=== PATIENT | female | born 1995 | race Caucasian/White ===

== ENCOUNTER 2022-01-08 00:32 | Inpatient (IN) ==
[2022-01-08] MEDS ORDERED: OXYTOCIN 30 UNITS/500 ML BAG IV PRN ×2 (01:24→10:50)
[2022-01-08] MEDS ORDERED: LIDOCAINE 1% LOCAL 20 ML VIAL INFIL PRN (01:24)
--- NOTE | 2022-01-08 01:28 | History & Physical Report ---
Date of Service January 08, 2022 Assessment & Plan (1) Supervision of normal first : Plan: Spontaneous labor. Admit to L&D. EFM/toco. Labs. IV access. She is not yet sure whether she'll want an epidural. History of Present Illness Chief Complaint: ROM Primary Care Provider: NO PCP 26yo @ 38 03/31, ROM clear fluid at home just prior to midnight. Feeling ctx every few minutes. +FM. No vaginal bleeding. uncomplicated. Allergies Allergy/AdvReac Type Severity Reaction Status Date / Time amoxicillin Allergy hives Verified 01/01/22 16:34 azithromycin Allergy hives Verified 01/01/22 16:34 chocolate flavor Allergy hives Verified 01/01/22 16:34 doxycycline Allergy hives Verified 01/01/22 16:34 Home Medications Medication Instructions Recorded Confirmed Type cetirizine 10 mg tablet (Zyrtec) 10 mg PO DAILY 03/01/21 01/08/22 History prenat.vits,mara,lhx-ucus-zaoed 1 tab PO DAILY 06/05/21 01/08/22 History Patient History Medical History History of chicken pox Urticaria Surgical History S/P cholecystectomy S/P wisdom tooth extraction Family History Grandmother (Maternal) Breast cancer Denies family history of Ovarian cancer Colorectal cancer Social History Smoking Status: Never smoker Hx Alcohol Use: No Hx Substance Use: No Preferred Language: Citizen Of [place] Communication Ability: Effective Die Turner Required: No Beliefs That Will Affect Care: None marital status: marital status details: Pop Luna (28) [phone] Current Living Situation: Spouse Current Living Situation Comment: lives with spouse, dogs current occupational status: employed 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 Other Information That Helps Us Care for You: No Feels Safe at Home: Yes Safety Concerns: Feels Safe At This Time Review of Systems All systems reviewed & are unremarkable except as noted in HPI & below Physical Exam Physical Exam: FHT Cat 1 [place] Q 3-4 min SVE 5/90/+1, grossly ruptured clear fluid mid/soft, EFW 7-8 Constitutional: WD/WN, vitals as above Respiratory: normal respiratory effort, lungs clear to auscultation no respiratory distress Cardiovascular: Rate/Rhythm: regular rate and regular rhythm Gastrointestinal (Abdomen): Inspection/Auscultation: abdomen normal to inspection Percussion/Palpation: abdomen soft; abdomen nontender Gravid. No s/s chorio or abruption. Skin: no rashes, warm and dry Psychiatric: A+Ox3, euthymic affect Results & Data ([facility]) Vital Signs (Past 12 Hours) Vital Signs Temp Pulse Resp BP 01/08/22 00:54 86 116/70 01/08/22 00:49 36.6 C 18 Coding Level of Care Code None Diagnoses Supervision of normal first Z34.00
[2022-01-08 01:53] LABS: Hematocrit (blood only) 32.5 % (34.1-44.9); Hemoglobin 10.6 g/dl (12.0-16.0); Mean Corpuscular Hgb Conc 32.6 g/dL (32.0-36.0); Mean Corpuscular Volume 76.7 fL (80.0-100.0); Mean Platelet Volume 10.9 fL (9.4-12.3); Platelet Count 182 K/uL (130-400); RDW Coefficient of Variation 15.9 % (11.5-14.5); RDW Standard Deviation 43.3 fL (36.4-46.3); Red Blood Count 4.24 M/uL (3.93-5.22)
[2022-01-08] MEDS: LACTATED RINGER'S 1,000 ML IV PRN ×2 (03:12→06:59)
[2022-01-08] MEDS ORDERED: fentaNYL citrate 100 MCG/2 ML VIAL ONE (03:15)
[2022-01-08] MEDS ORDERED: LIDOCAINE 2%/EPINEPHRINE 1:200,000 20 ML SDV ONE (03:15)
[2022-01-08] MEDS ORDERED: BUPIVACAINE 0.25% 30 ML VIAL ONE (03:15)
[2022-01-08] MEDS ORDERED: ePHEDrine sulfate 50 MG/ML AMP ONE (03:15)
[2022-01-08] MEDS ORDERED: SODIUM CHLORIDE 0.9% INJ 10 ML VIAL ONE (03:15)
[2022-01-08] MEDS ORDERED: fentaNYL 2MCG/ML ROPIVACAINE 1.25MG/ML 100 ML BAG EPI ONE (03:16)
[2022-01-08] MEDS ORDERED: ePHEDrine sulfate 50 MG/ML AMP IV PRN (03:40)
[2022-01-08] MEDS ORDERED: diphenhydrAMINE 50 MG/ML VIAL IV PRN (03:40)
[2022-01-08] MEDS ORDERED: fentaNYL 2MCG/ML ROPIVACAINE 1.25MG/ML 100 ML BAG EPI PRN (03:40)
[2022-01-08] MEDS ORDERED: NALOXONE HCL 0.4 MG/1 ML VIAL/CARP IV PRN (03:40)
[2022-01-08] MEDS ORDERED: ONDANSETRON INJ 2 MG/ML 2 ML VIAL IV PRN (03:40)
[2022-01-08] MEDS ORDERED: NALOXONE HCL 1 MG in SODIUM CHLORIDE 0.9% 1000ML 1,000 ML IV PRN (03:40)
[2022-01-08] MEDS ORDERED: NALBUPHINE HCL INJ 10 MG/ML AMP IV PRN (03:40)
--- NOTE | 2022-01-08 03:40 | Anesthesiology Consultation ---
Date of Service January 08, 2022 Assessment & Plan ASA ASA2 Proposed Anesthesia Anesthesia Type: Labor Epidural Risk / Benefits Reviewed With: PT / POA / Parent / Guardian, Accepts Plan and Informed Consent Obtained History Height/Weight Height: 5 ft 5 in Weight: 93.894 kg Allergies Allergy/AdvReac Type Severity Reaction Status Date / Time amoxicillin Allergy hives Verified 01/01/22 16:34 azithromycin Allergy hives Verified 01/01/22 16:34 chocolate flavor Allergy hives Verified 01/01/22 16:34 doxycycline Allergy hives Verified 01/01/22 16:34 Medications Home Medications Medication Instructions Recorded Confirmed Last Taken cetirizine 10 mg tablet (Zyrtec) 10 mg PO DAILY 03/01/21 01/08/22 01/07/22 prenat.vits,mara,mwp-uygg-pisic 1 tab PO DAILY 06/05/21 01/08/22 01/07/22 Active Medications Generic Name Dose Route Start Last Admin Trade Name Freq PRN Reason Stop Dose Admin Lactated Ringer's 1,000 mls @ 125 mls/hr 01/08/22 01:24 01/08/22 03:12 Lr IV 01/10/22 01:23 999 mls/hr .Q8H PRN Administration L&D Protocol Protocol Past Medical History Medical History History of chicken pox Urticaria Exercise / Class Metabolic Activity II 4-5 Yardwork/Stairs/Walk up hill Past Family History Family History Grandmother (Maternal) Breast cancer Denies family history of Ovarian cancer Colorectal cancer Past Surgical History Surgical History S/P cholecystectomy S/P wisdom tooth extraction Past Anesthesia History No Hx of Anesthesia Complications and No Family Hx of Anesthesia Complications History of PONV No Hx of PONV and No Hx of Motion Sickness Social History Smoking Status: Never smoker Hx Alcohol Use: No Hx Substance Use: No Review of Systems denies fever/cough/ colds/ chest pain/ SOB/ KARO denies KARO Physical Exam Vital Signs Last Vital Signs Temp 36.6 C 01/08/22 02:15 Pulse 66 01/08/22 04:07 Resp 18 01/08/22 00:49 BP 91/52 L 01/08/22 04:07 Pulse Ox 100 01/08/22 04:06 ENMT Mouth: no TMJ abnormality and no dentition abnormality Thyromental Distance: > or= 3.5 Finger Breadths Mallampati Class: II Neck neck extension not limited Respiratory normal respiratory effort; no respiratory distress Auscultation: lungs clear to auscultation bilaterally Cardiovascular Rate/Rhythm: regular rate and regular rhythm Neurologic moves all extremities Psychiatric Orientation: alert and oriented x 3 Testing Laboratory Results 01/08/22 01:44
--- NOTE | 2022-01-08 07:00 | Labor Progress Brief Note ---
Date of Service January 08, 2022 Subjective Patient comfortable with epidural. FHT Cat 1 [place] Q 2 SVE 9.5/100/+1 per RN Continue labor. Not feeling urge to push yet. Assessment & Plan Admission and Anticipated Discharge Date Admission Date: January 08, 2022 Results & Data ([facility]) Vital Signs (Past 12 Hours) Vital Signs Temp Pulse Resp BP Pulse Ox 01/08/22 06:56 93 H 98 01/08/22 06:51 96 H 98 01/08/22 06:46 103 H 97 01/08/22 06:41 113 H 99 01/08/22 06:36 124 H 99 01/08/22 06:31 121 H 100 01/08/22 06:29 36.9 C 120 H 126/78 01/08/22 06:26 104 H 98 01/08/22 06:21 106 H 99 01/08/22 06:16 125 H 98 01/08/22 06:14 105 H 125/71 01/08/22 06:11 107 H 98 01/08/22 06:06 106 H 97 01/08/22 06:00 18 01/08/22 06:00 18 01/08/22 06:01 98 H 98 01/08/22 05:59 121 H 121/66 01/08/22 05:56 99 H 97 01/08/22 05:51 111 H 98 01/08/22 05:46 125 H 98 01/08/22 05:45 105 H 118/72 01/08/22 05:41 118 H 98 01/08/22 05:36 99 H 97 01/08/22 05:31 120 H 98 01/08/22 05:30 114 H 18 120/69 01/08/22 05:26 105 H 98 01/08/22 05:21 94 H 98 01/08/22 05:16 98 H 97 01/08/22 05:14 104 H 113/71 01/08/22 05:11 116 H 98 01/08/22 05:06 129 H 98 01/08/22 05:01 122 H 99 01/08/22 05:00 126 H 18 110/68 01/08/22 04:56 108 H 98 01/08/22 04:51 92 H 97 01/08/22 04:46 90 97 01/08/22 04:45 93 H 127/63 01/08/22 04:41 105 H 97 01/08/22 04:36 88 98 01/08/22 04:15 36.7 C 01/08/22 04:00 18 01/08/22 04:00 18 01/08/22 04:30 18 01/08/22 04:30 18 01/08/22 04:31 98 01/08/22 04:31 112 H 01/08/22 04:31 120 H 129/73 01/08/22 04:26 78 99 01/08/22 04:25 65 154/72 H 01/08/22 04:23 66 98/55 L 01/08/22 04:21 79 98 01/08/22 04:16 107 H 98 01/08/22 04:14 100 H 121/74 01/08/22 04:11 87 99 01/08/22 04:10 73 121/67 01/08/22 04:07 66 91/52 L 01/08/22 04:06 68 100 01/08/22 04:04 73 107/64 01/08/22 04:01 97 H 98 01/08/22 03:59 102 H 111/67 01/08/22 03:56 93 H 99 01/08/22 03:51 118 H 100 01/08/22 03:46 94 H 100 01/08/22 03:41 93 H 100 01/08/22 03:36 93 H 99 01/08/22 03:31 85 99 01/08/22 03:26 81 99 01/08/22 03:21 90 100 01/08/22 02:15 36.6 C 01/08/22 00:54 86 116/70 01/08/22 00:49 36.6 C 18 Coding Level of Care Code None
--- NOTE | 2022-01-08 09:20 | Labor Progress Brief Note ---
Date of Service January 08, 2022 Subjective comfortable appearing Assessment & Plan (1) Active labor at term: Plan begin 2nd stage soon. fhts categ 1. aware that i am taking over care. Admission and Anticipated Discharge Date Admission Date: January 08, 2022 Physical Exam Constitutional: WD/WN, vitals as above Genitourinary: Manual OB Exam: + cervical dilation 10 cm (per nurse) OB Exam Monitor Tracing: + external FHT monitor used, + external uterine monitor used (q3), + category I and + normal FHT variability Results & Data ([facility]) Vital Signs (Past 12 Hours) Vital Signs Temp Pulse Resp BP Pulse Ox 01/08/22 07:00 98.4 F 18 01/08/22 09:14 98 H 132/83 01/08/22 09:11 97 H 99 01/08/22 09:06 92 H 98 01/08/22 09:02 20 01/08/22 09:02 98.4 F 20 01/08/22 09:01 93 H 100 01/08/22 09:00 90 134/86 01/08/22 08:56 93 H 98 01/08/22 08:51 120 H 98 01/08/22 08:46 98 01/08/22 08:46 86 01/08/22 08:46 83 127/77 01/08/22 08:41 110 H 98 01/08/22 08:36 83 97 01/08/22 08:30 20 01/08/22 08:30 20 01/08/22 08:31 114 H 118/83 98 01/08/22 08:26 114 H 98 01/08/22 08:21 91 H 97 01/08/22 08:16 96 H 97 01/08/22 08:15 90 129/87 01/08/22 08:11 91 H 98 01/08/22 08:00 18 01/08/22 08:00 18 01/08/22 08:06 137 H 98 01/08/22 08:01 106 H 110/74 99 01/08/22 07:56 84 98 01/08/22 07:51 88 98 01/08/22 07:46 102 H 98 01/08/22 07:45 107 H 121/86 01/08/22 07:41 95 H 98 01/08/22 07:36 101 H 97 01/08/22 07:31 90 99 01/08/22 07:30 92 H 20 122/77 01/08/22 07:26 119 H 98 01/08/22 07:21 92 H 98 01/08/22 07:16 86 98 01/08/22 07:15 125 H 107/70 01/08/22 07:11 101 H 98 01/08/22 07:06 88 98 01/08/22 07:01 112 H 119/84 99 01/08/22 06:56 93 H 98 01/08/22 06:51 96 H 98 01/08/22 06:46 103 H 97 01/08/22 06:41 113 H 99 01/08/22 06:36 124 H 99 01/08/22 06:31 121 H 100 01/08/22 06:29 98.4 F 120 H 126/78 01/08/22 06:26 104 H 98 01/08/22 06:21 106 H 99 01/08/22 06:16 125 H 98 01/08/22 06:14 105 H 125/71 01/08/22 06:11 107 H 98 01/08/22 06:06 106 H 97 01/08/22 06:00 18 01/08/22 06:00 18 01/08/22 06:01 98 H 98 01/08/22 05:59 121 H 121/66 01/08/22 05:56 99 H 97 01/08/22 05:51 111 H 98 01/08/22 05:46 125 H 98 01/08/22 05:45 105 H 118/72 01/08/22 05:41 118 H 98 01/08/22 05:36 99 H 97 01/08/22 05:31 120 H 98 01/08/22 05:30 114 H 18 120/69 01/08/22 05:26 105 H 98 01/08/22 05:21 94 H 98 01/08/22 05:16 98 H 97 01/08/22 05:14 104 H 113/71 01/08/22 05:11 116 H 98 01/08/22 05:06 129 H 98 01/08/22 05:01 122 H 99 01/08/22 05:00 126 H 18 110/68 01/08/22 04:56 108 H 98 01/08/22 04:51 92 H 97 01/08/22 04:46 90 97 01/08/22 04:45 93 H 127/63 01/08/22 04:41 105 H 97 01/08/22 04:36 88 98 01/08/22 04:15 98.1 F 01/08/22 04:00 18 01/08/22 04:00 18 01/08/22 04:30 18 01/08/22 04:30 18 01/08/22 04:31 98 01/08/22 04:31 112 H 01/08/22 04:31 120 H 129/73 01/08/22 04:26 78 99 01/08/22 04:25 65 154/72 H 01/08/22 04:23 66 98/55 L 01/08/22 04:21 79 98 01/08/22 04:16 107 H 98 01/08/22 04:14 100 H 121/74 01/08/22 04:11 87 99 01/08/22 04:10 73 121/67 01/08/22 04:07 66 91/52 L 01/08/22 04:06 68 100 01/08/22 04:04 73 107/64 01/08/22 04:01 97 H 98 01/08/22 03:59 102 H 111/67 01/08/22 03:56 93 H 99 01/08/22 03:51 118 H 100 01/08/22 03:46 94 H 100 01/08/22 03:41 93 H 100 01/08/22 03:36 93 H 99 01/08/22 03:31 85 99 01/08/22 03:26 81 99 01/08/22 03:21 90 100 01/08/22 02:15 97.9 F 01/08/22 00:54 86 116/70 01/08/22 00:49 97.9 F 18 Coding Level of Care Code None Diagnoses Active labor at term
--- NOTE | 2022-01-08 10:43 | Delivery Summary ---
Vaginal Delivery Summary Date of Service January 08, 2022 Vaginal Delivery Summary and 2nd Degree LAC The patient dilated to complete and pushed to deliver a viable female Apgars 8 and 9 via over 2nd degree perineal laceration. Mouth and nose bulb suctioned at perineum. Shoulders and body delivered with ease. was vigorous and crying at . Cord clamped at 30 seconds of life and infant to maternal abdomen where the cord was then doubly clamped and cut. Placenta delivered spontaneously and intact, three-vessel cord. Hemostasis not achieved with dilute pitocin and uterine massage and drainage of the bladder for approximately 200 cc under sterile conditions, and uterus was explored x 2 with removal of retained tissue at CECELIA and 800mcg rectal cytotec placed. Hemostasis then improved. Laceration repaired in usual fashion with 3-0 vicryl. Cervix and sulci intact. EBL 500 cc. Mother and baby stable in recovery. [facility] Vaginal Delivery Charge Delivery Type Details: and 2nd Degree LAC
[2022-01-08] MEDS ORDERED: miSOPROStoL 200 MCG TAB PR ONE (10:50)
[2022-01-08] MEDS ORDERED: bisacodyL 10 MG SUPP PR PRN (10:50)
[2022-01-08] MEDS ORDERED: BENZOCAINE 20% AER SPR 82.5 GM CAN EXT PRN (10:50)
[2022-01-08] MEDS ORDERED: HYDROCORTISONE ACETATE 25 MG SUPP PR PRN (10:50)
[2022-01-08] MEDS ORDERED: oxyCODONE/ACETAMINOPHEN 5mg/325mg TAB PO PRN (10:50)
[2022-01-08] MEDS ORDERED: DIPHTHERIA/TETANUS/PERTUSSIS 0.5 ML SYR/VIAL IM ONE (10:50)
[2022-01-08] MEDS ORDERED: ACETAMINOPHEN 325 MG TAB PO PRN (10:50)
[2022-01-08] MEDS: ceFAZolin 2000MG 2,000 MG/15 ML SYR IV SCH ×2 (11:23→18:56)
[2022-01-08] MEDS: OXYTOCIN 20 UNITS in LACTATED RINGER'S 1,000 ML IV SCH ×2 (11:23→15:26)
--- NOTE | 2022-01-08 13:24 | Anesthesia Procedure Note ---
Date of Service January 08, 2022 Anesthesia Post Epidural Note Vital Signs Vital Signs: Temp Pulse Resp BP Pulse Ox 37.5 C 109 H 20 119/74 99 01/08/22 12:36 01/08/22 13:21 01/08/22 12:36 01/08/22 13:21 01/08/22 10:36 Pain Intensity Abdomen: Pain Intensity: 0 Notes Mental Status: alert / awake / arousable Nausea / Vomiting: adequately controlled Pain: adequately controlled Airway Patency, RR, SpO2: stable & adequate BP & HR: stable & adequate Hydration State: stable & adequate Neuraxial Anesthesia: was administered and sensory block is resolving Anesthetic Complications: no major complications apparent and Pt Satisfied with anesthetic care Epidural: Removed without complications and With tip intact
--- NOTE | 2022-01-08 14:46 | Communication Note ---
Date of Service: January 08, 2022 came to see pt after nursing noted increased bleeding pp. 600cc total but in last hour only small amount. no clots. still have dilute iv pit. will add met hergine po x 4 doses and do h/h now to compare moving forward.
[2022-01-08] MEDS ORDERED: Nursing to Pharmacy Communication SCH ×2 (15:15→21:30)
[2022-01-08 15:20] LABS: Hematocrit (blood only) 28.3 % (34.1-44.9); Hemoglobin 9.3 g/dl (12.0-16.0)
[2022-01-08] MEDS: IBUPROFEN 600 MG TAB PO PRN (15:25)
[2022-01-08] MEDS: METHYLERGONOVINE MALEATE 0.2 MG TAB PO SCH ×3 (15:26→21:14)
[2022-01-08] MEDS ORDERED: METHYLERGONOVINE MALEATE 0.2 MG TAB PO SCH (17:00)
[2022-01-08] MEDS: DOCUSATE SODIUM 100 MG CAP PO SCH (21:14)
[2022-01-08] MEDS: CETIRIZINE HCL 10 MG TABLET PO SCH (21:49)
[2022-01-09] MEDS: IBUPROFEN 600 MG TAB PO PRN ×3 (01:51→21:06)
[2022-01-09] MEDS: ceFAZolin 2000MG 2,000 MG/15 ML SYR IV SCH (02:50)
[2022-01-09 06:28] LABS: Hematocrit (blood only) 25.7 % (34.1-44.9); Hemoglobin 8.4 g/dl (12.0-16.0)
--- NOTE | 2022-01-09 06:49 | Obstetrical Progress Note ---
Date of Service <Rufina RiveraDO - Last Filed: 01/09/22 07:26> January 09, 2022 Assessment & Plan <Rufina RiveraDO - Last Filed: 01/09/22 07:26> (1) Status post vaginal delivery: continue OOB, ambulation, diet as tolerated (2) PPH ( hemorrhage): <Anna Oneill MD, FACOG - Last Filed: 01/09/22 08:15> (1) Status post vaginal delivery: (2) PPH ( hemorrhage): Subjective <Rufina RiveraDO - Last Filed: 01/09/22 07:26> Renetta is a 26 y/o female who is now PPD # 1 following spontaneous vaginal delivery at 38 1/7 weeks. Reports feeling well overall this morning. Mild abdominal cramping well managed on analgesics. Voiding. Tolerating meals overnight and able to ambulate some. Some persistent lochia with some improvem ent this morning. Breast feeding. Review of Systems Denies fever, chills, sweats Denies shortness of breath, difficulty breathing, chest pain, palpitations, chest pressure. Denies breast pain. Denies dysuria. Denies headache or changes in vision. Physical Exam <Rufinajem RiveraDO - Last Filed: 01/09/22 07:26> General: Alert, oriented. No acute distress. Cardiac: Regular rate and rhythm, no murmurs/rubs/gallops. Respiratory: Clear to auscultation bilaterally a/p, no wheezes/rales/rhonchi. No increased work of breathing. Symmetrical chest rise. No respiratory distress. Abdomen: Soft, nontender, nondistended. Uterus: Uterine fundus firm, palpable 2 cm below umbilicus. Lower Extremities: No lower extremity edema or swelling. No deep calf pain. Serena's negative bilaterally. Results & Data ([facility] [place]) <Rufina RiveraDO - Last Filed: 01/09/22 07:26> Vital Signs (Past 12 Hours) Vital Signs Temp Pulse Resp BP O2 Del Method 01/09/22 04:45 36.6 C 105 H 16 113/75 Room Air 01/09/22 00:00 36.6 C 103 H 16 123/71 Room Air 01/08/22 20:05 Room Air 01/08/22 20:05 36.9 C 99 H 18 118/74 Room Air <Anna Oneill MD, FACOG - Last Filed: 01/09/22 08:15> Co-Signing Physician Notes Resident Physician Supervision Note: I was present with Dr. iRvera during the history and exam. I discussed the case with the resident and agree with the findings and plan as documented in the note. Any exceptions or clarifications are listed here: stable, no issues with bleeding, some cramping, finishing course of po methergine and kefzol x 3 doses. eating, voiding, ambulating, hgb stable. . rhpos, ri. abd soft ff at u nt, nt calves. ppd#1, s/p and pph, totaling about 1100cc, now doing well. no evidence of ongoing excessive bleeding. will monitor. rec further inpt stay. pt agreeable. Documented By: Anna Oneill MD, FACOG Resident Activity Tracking <Rufina Rivera, - Last Filed: 01/09/22 07:26> Resident Involvement: Resident Care Provided Care Provided: OB Delivery (Post )
[2022-01-09] MEDS: PRENATAL VITAMIN 1 TAB PO SCH (08:33)
[2022-01-09] MEDS: DOCUSATE SODIUM 100 MG CAP PO SCH ×2 (08:33→21:06)
[2022-01-09] MEDS: METHYLERGONOVINE MALEATE 0.2 MG TAB PO SCH (08:33)
[2022-01-09] MEDS ORDERED: CETIRIZINE HCL 10 MG TABLET PO SCH (09:00)
[2022-01-09] MEDS: CETIRIZINE HCL 10 MG TABLET PO SCH (21:06)
--- NOTE | 2022-01-10 05:44 | Obstetrical Progress Note ---
Date of Service <Rufina Rivera - Last Filed: 01/10/22 06:10> January 10, 2022 Assessment & Plan <Rufina RiveraDO - Last Filed: 01/10/22 06:10> (1) Status post vaginal delivery: continue OOB, ambulation, diet as tolerated (2) PPH ( hemorrhage): No evidence of ongoing bleeding. hemoglobin= 8.4 on 01/09. <Giuliana Gordon MD - Last Filed: 01/10/22 07:03> (1) Status post vaginal delivery: (2) PPH ( hemorrhage): Subjective <Rufina RiveraDO - Last Filed: 01/10/22 06:10> Renetta is a 26 y/o female who is now PPD # 2 following spontaneous vaginal delivery at 38 1/7 weeks. Reports feeling well overall this morning. Mild abdominal cramping well managed with ibuprofen. Voiding. Tolerating meals overnight and able to ambulate some. Some persistent lochia with some improvement this morning. Breast/Bottle feeding. Review of Systems Denies fever, chills, sweats Denies shortness of breath, difficulty breathing, chest pain, palpitations, chest pressure. Denies breast pain. Denies dysuria. Denies headache or changes in vision. Physical Exam <Rufina RiveraDO - Last Filed: 01/10/22 06:10> General: Alert, oriented. No acute distress. Cardiac: Regular rate and rhythm, no murmurs/rubs/gallops. Respiratory: Clear to auscultation bilaterally a/p, no wheezes/rales/rhonchi. No increased work of breathing. Symmetrical chest rise. No respiratory distress. Abdomen: Soft, nontender, nondistended. Uterus: Uterine fundus firm, palpable 2 cm below umbilicus. Lower Extremities: No lower extremity edema or swelling. No deep calf pain. Serena's negative bilaterally. Results & Data ([facility]) <Rufina NievesPalma MiguelDO - Last Filed: 01/10/22 06:10> Vital Signs (Past 12 Hours) Vital Signs Temp Pulse Resp BP 01/10/22 00:30 36.9 C 89 18 113/72 01/09/22 21:00 36.7 C 99 H 18 119/70 <Giuliana Gordon MD - Last Filed: 01/10/22 07:03> Co-Signing Physician Notes Resident Physician Supervision Note: I interviewed and examined the patient. Discussed with Dr. Rivera and agree with findings and plan as documented in the note. Any exceptions or clarifications are listed here: Discharge instructions reviewed with patient at bedside today. Documented By: Giuliana Gordon MD, FACOG Resident Activity Tracking <Rufina Rivera DO - Last Filed: 01/10/22 06:10> Resident Involvement: Resident Care Provided Care Provided: OB Delivery (Post )
[2022-01-10] MEDS: PRENATAL VITAMIN 1 TAB PO SCH (08:19)
[2022-01-10] MEDS: IBUPROFEN 600 MG TAB PO PRN (08:19)
[2022-01-10] MEDS: DOCUSATE SODIUM 100 MG CAP PO SCH (08:19)
== END 2022-01-10 13:30 | disposition home or self-care (01) | DRG 806 ==
LOC: OPB 00:32 → 4S1 00:34 → 4E2 17:09
DX: Z91.018 Allergy to other foods; O72.1 Other immediate postpartum hemorrhage; Z88.1 Allergy status to other antibiotic agents; Z37.0 Single live birth; Z3A.38 38 weeks gestation of pregnancy; O70.1 Second degree perineal laceration during delivery

== ENCOUNTER 2022-06-18 03:13 | Observation (INO) ==
[2022-06-18] MEDS ORDERED: ONDANSETRON INJ 2 MG/ML 2 ML VIAL IV STA ×2 (03:33→06:27)
[2022-06-18] MEDS ORDERED: SODIUM CHLORIDE 0.9% 1000ML 1,000 ML IV SCH (03:45)
[2022-06-18] MEDS: MoRPHine SULFATE 4 MG/ML 1 ML CARP\\VIAL IV PRN ×3 (04:00→08:51)
[2022-06-18 04:17] LABS: Basophils # (auto) 0.02 K/uL (0-0.2); Basophils % (auto) 0.3 %; Hematocrit (blood only) 36.8 % (37.0-47.0); Hemoglobin 11.6 g/dl (12.0-16.0); Immature Granulocytes # (auto) 0.02 K/uL (0.01-0.20); Immature Granulocytes % (auto) 0.3 %; Lymphocytes # (auto) 0.84 K/uL (1.2-3.4); Lymphocytes % (auto) 10.7 %; Mean Corpuscular Hemoglobin 22.3 pg (25.0-34.0); Mean Corpuscular Hgb Conc 31.5 g/dL (32.0-36.0); Mean Corpuscular Volume 70.8 fL (80.0-100.0); Mean Platelet Volume 10.3 fL (9.4-12.4); Monocytes # (auto) 0.19 K/uL (0.11-0.59); Monocytes % (auto) 2.4 %; Neutrophils % (auto) 86.3 %; Platelet Count 289 K/uL (130-400); RDW Coefficient of Variation 17.2 % (11.5-14.5); RDW Standard Deviation 42.8 fL (36.4-46.3); White Blood Count 7.87 K/ul (4.8-10.8)
[2022-06-18 04:22] LABS: Appearance Urine Clear (Clear); Bacteria Urine Automated Negative (Negative); Bilirubin Urine Negative (Negative); Blood Urine 1+ (Negative); Color Urine Dark Yellow; Epithelial Cell Urine Auto >30 /lpf (0-5); Glucose Urine UA Negative (Negative); Ketones Urine 3+ (Negative); Leukocyte Esterase Urine Trace (Negative); Nitrite Urine Negative (Negative); Protein Urine 1+ (Negative); Specific Gravity Urine 1.037 (1.000-1.030); Urobilinogen Urine Negative (Negative); pH Urine 5.5 (4.5-7.5)
[2022-06-18 04:37] LABS: Albumin Globulin Ratio 1.3 (0.9-2); Albumin Level 4.3 gm/dl (3.4-5.0); BUN Creatinine Ratio 15.7 (10-20); Bilirubin,Total 0.3 mg/dl (0.2-1.0); Calcium 8.9 mg/dl (8.6-10.3); Creatinine Clr Calc Pharmacy 80.6 ml/min; Est GFR (African American) 86.7 ml/min; Est GFR (Non-African American) 74.8 ml/min; Globulin 3.4 gm/dl (2.5-4.0); Magnesium 1.7 mg/dl (1.7-2.4); Potassium 3.5 mmol/L (3.5-5.1); Total Protein 7.7 gm/dl (6.0-8.3)
[2022-06-18 05:06] LABS: Adenovirus PCR Not Detected (NotDetected); Bordetella parapertussis PCR Not Detected (NotDetected); Bordetella pertussis PCR Not Detected (NotDetected); Chlamydia pneumoniae PCR Not Detected (NotDetected); Coronavirus 229E PCR Not Detected (NotDetected); Coronavirus CoV-2 (COVID19)PCR Not Detected (NotDetected); Coronavirus HKU1 PCR Not Detected (NotDetected); Coronavirus NL63 PCR Not Detected (NotDetected); Coronavirus OC43PCR Not Detected (NotDetected); Human Metapneumovirus PCR Not Detected (NotDetected); Influenza A PCR Not Detected (NotDetected); Influenza B PCR Not Detected (NotDetected); Mycoplasma pneumoniae PCR Not Detected (NotDetected); Parainfluenza Virus 1 PCR Not Detected (NotDetected); Parainfluenza Virus 2 PCR Not Detected (NotDetected); Parainfluenza Virus 3 PCR Not Detected (NotDetected); Parainfluenza Virus 4 PCR Not Detected (NotDetected); Respiratory Syncytial VirusPCR Not Detected (NotDetected); Rhinovirus/Enterovirus PCR Not Detected (NotDetected)
[2022-06-18] MEDS ORDERED: OPTIRAY 350 100ml IV ONE (05:36)
--- NOTE | 2022-06-18 06:05 | CT Scan Report ---
Exam(s): CT ABDOMEN + PELVIS With Contrast IV Amt: 87 ml optiray 350 EXAM: CT Abdomen and Pelvis With Intravenous Contrast CLINICAL HISTORY: Reason for exam: n/v/d, right side abd pain. TECHNIQUE: Axial computed tomography images of the abdomen and pelvis with intravenous contrast. CTDI is 11.31 mGy and DLP is 600.81 mGy-cm. Automated exposure control was utilized for the study. A dose lowering technique was utilized adhering to the principles of ALARA. CONTRAST: Patient received 87 ml optiray 350 of IV contrast COMPARISON: No relevant prior studies available. FINDINGS: Lung bases: Unremarkable. No mass. No consolidation. ABDOMEN: Liver: Hepatic steatosis. No mass. Gallbladder and bile ducts: Unremarkable. No calcified stones. No ductal dilation. Pancreas: Unremarkable. No mass. No ductal dilation. Spleen: Splenomegaly. Adrenals: Unremarkable. No mass. Kidneys and ureters: Extensive right hydronephrosis and hydroureter with a 8 mm x 6.5 mm urinary calculus just proximal to the right UVJ. Right nephrolithiasis. Stomach and bowel: Thickening and edema of the distal esophageal wall and gastric wall. There is thickening and edema of the colon wall with mild inflammation of the surrounding mesenteric fat. PELVIS: Appendix: No findings to suggest acute appendicitis. Bladder: Unremarkable. No mass. Reproductive: Unremarkable as visualized. ABDOMEN and PELVIS: Intraperitoneal space: Unremarkable. No free air. No significant fluid collection. Bones/joints: No acute fracture. No dislocation. Soft tissues: There is a 5 mm fat-containing umbilical hernia. Vasculature: Unremarkable. No abdominal aortic aneurysm. Lymph nodes: Numerous prominent lymph nodes scattered throughout the mesenteric fat. IMPRESSION: 1. Extensive right hydronephrosis and hydroureter with a 8 x 6.5 mm urinary calculus just proximal to the right UVJ. Recommend urology consult. 2. Findings concerning for pancolitis, which may be of infectious or inflammatory etiologies. Secondary mesenteric adenitis. 3. Findings concerning for distal esophagitis and gastritis. 4. Right nephrolithiasis. 5. Hepatic steatosis. 6. Splenomegaly. Electronically signed by: Jennifer Whitten MD 06/18/22 06:04 AM
--- NOTE | 2022-06-18 06:23 | Urology Consultation ---
Date of Consultation June 18, 2022 Assessment & Plan (1) Nephrolithiasis: Due to the patient's findings on imaging and clinical presentation she will be admitted on the hospitalist service. Recommend proceeding as follows: Provide analgesics Provide antiemetics Provide IV fluid for hydration We will defer management of patient's colitis to the primary service Recommend considering Flomax for expulsive therapy I have asked the patient to remain n.p.o. as she may require cystoscopy due to the size of the kidney stone present. Additional recommendations be forthcoming based on her clinical course as History of Present Illness Reason for Consultation: Nephrolithiasis History of Present Illness This is a 26-year-old female who presented to the emergency department secondary to right-sided flank pain. Patient reports that she has had some generalized abdominal pain and felt that she had a gastroenteritis as she had a family member with similar symptoms. Over the past 24 hours though she developed some severe right-sided flank pain with radiation to her abdomen. She has had associated nausea and vomiting. She does report some intermittent dysuria but denies hematuria. She denies any fevers, shakes, or chills. She notes that she has never had kidney stones in the past. Since arrival to the hospital the patient has had labs and imaging which indepen dent reviewed. A CT scan of the abdomen pelvis showed the patient had right hydronephrosis with an 8 x 6.5 mm kidney stone at the right UV junction. Patient was also noted to have findings concerning for pancolitis on her CT scan. Labs include a CBC her white blood cell count was normal. Hemoglobin and hematocrit are 11.6 and 36.8. Platelet count was normal. Chemistry profile showed sodium, potassium, BUN, creatinine were normal. There is no elevation of LFTs or lipase. Urinalysis showed 10-30 white blood cells per high-power field with no bacteria. This study was also negative for nitrites but showed trace leukocyte Estrace. A COVID test is noted to be negative. A test is pending. The time my interview the patient was resting comfortably in bed in no distress. Allergies Allergy/AdvReac Type Severity Reaction Status Date / Time amoxicillin Allergy hives Verified 02/27/22 16:01 azithromycin Allergy hives Verified 02/27/22 16:01 chocolate flavor Allergy hives Verified 02/27/22 16:01 doxycycline Allergy hives Verified 02/27/22 16:01 Home Medications Medication Instructions Recorded Confirmed Type cetirizine 10 mg tablet (Zyrtec) 10 mg PO DAILY 03/01/21 02/27/22 History prenat.vits,mara,iiz-ayyy-flnic 1 tab PO DAILY 06/05/21 02/27/22 History Patient History Medical History Active labor at term History of chicken pox Supervision of normal first Urticaria Surgical History S/P cholecystectomy S/P wisdom tooth extraction Family History Grandmother (Maternal) Breast cancer Denies family history of Ovarian cancer Colorectal cancer Social History Smoking Status: Never smoker Hx Alcohol Use: No Hx Substance Use: No Preferred Language: Zambian Communication Ability: Effective 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: No Beliefs That Will Affect Care: None marital status: marital status details: Pop Luna (28) [phone] Current Living Situation: Spouse Current Living Situation Comment: lives with spouse, dogs current occupational status: employed 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 Feels Safe at Home: Yes Review of Systems Constitutional: no fever and no chills Eyes: no eye pain Ear, Nose, Mouth, Throat: no ear pain Respiratory: no cough and no dyspnea Cardiovascular: no chest pain Gastrointestinal: + abdominal pain, + nausea and + vomiting Genitourinary: + dysuria; no hematuria Musculoskeletal: + back pain (Right flank) Integumentary: no rash Neurologic: no localized weakness Physical Exam Constitutional: WD/WN, vitals as above Eyes: no conjunctival abnormality ENMT: Ears: no hearing impairment and no external ear abnormality Mouth: no oropharynx abnormality Neck: trachea midline Respiratory: normal respiratory effort; no respiratory distress and no labored breathing Cardiovascular: Rate/Rhythm: regular rate and regular rhythm Gastrointestinal (Abdomen): Abdomen is soft, nonrigid, nondistended, with some generalized tenderness to palpation. Musculoskeletal: No calf tenderness Skin: no rashes Neurologic: moves all extremities Psychiatric: A+Ox3, euthymic affect Genitourinary: + CVA tenderness (Right sided noted with percussion) Results & Data Vital Signs (Past 12 Hours) Vital Signs Temp Pulse Pulse Resp BP BP Pulse Ox 06/18/22 03:51 76 06/18/22 04:02 76 18 162/95 H 98 06/18/22 03:25 36.7 C 16 135/91 97 O2 Del Method 06/18/22 03:51 06/18/22 04:02 Room Air 06/18/22 03:25 Room Air PG Care Time/CCT Total # of Minutes Spent Total Time Spent with Patient: Total time spent is greater than 50% in coordination of care (as documented) at patient's floor/unit and/or counseling patient: Coding Level of Care Code 92621 IN/OBS CONSULT LVL 5,80M Diagnoses Nephrolithiasis N20.0
--- NOTE | 2022-06-18 07:44 | History & Physical Report ---
Date of Service June 18, 2022 Assessment & Plan (1) Nephrolithiasis: Plan: Imaging w/ extensive right hydronephrosis and hydroureter with a 8 x 6.5 mm urinary calculus just proximal to the right UVJ. UA does not appear infected at present but will monitor cx Admit med/surg Urology consulted, appreciate assistance Continue NPO Pain control -- tylenol, morphine, toradol x 3 doses then prn. Heating pad Flomax HS IVF Monitor I&O Strain urine Likely will need cystoscopy given size of stone but will monitor and keep NPO Monitor labs in AM (2) Pancolitis: Plan: as seen on imaging, suspect 2nd to viral GI illness over past weeks. Biofire resp negative No hx IBD Check stool PCR/cdiff for completeness Monitor, consider GI consult if needed (3) Diarrhea: Plan: reported, members at home also ill w/ similar symptoms stool studies as above monitor (4) Microcytic anemia: Plan: denied any bleeding, did have baby last fall monitor cbc, check iron studies History of Present Illness Chief Complaint: R flank pain Primary Care Provider: NO PCP 26yo family with recent GI/viral illness/diarrhea at home had initially been improving from vial illness but then last evening developed significant RIGHT flank pain 10/10, with radiation to groin. Reports urine darkener in color and reports she has not keeping up with hydration very well at home over the past week. She did not take any Tylenol/ibuprofen at home for pain. NEVER had history of stones in the past. CT imaging revealed right hydronephrosis with an 8 x 6.5 mm kidney stone at the right UV junction, also with concerns for pancolitis however not having significant abdominal pain/nausea or vomiting at present. Given dose of morphine in ER and reports feeling better but discussed Toradol for pain control which may be more effective. Continued loose stools but denied any blood/family history of IBD. No documents fevers. Discussed keeping NPO in case of need for cystoscopy and initiation of Flomax, morphine and toradol for pain. No having any chest pain or shortness of breath at present. No leukocytosis. WBC 7.8k. Not at present, or taking any regular medications. Questions/concerns addressed at this time. Allergies Allergy/AdvReac Type Severity Reaction Status Date / Time amoxicillin Allergy hives Verified 02/27/22 16:01 azithromycin Allergy hives Verified 02/27/22 16:01 chocolate flavor Allergy hives Verified 02/27/22 16:01 doxycycline Allergy hives Verified 02/27/22 16:01 Home Medications Medication Instructions Recorded Confirmed Type cetirizine 10 mg tablet (Zyrtec) 10 mg PO DAILY 03/01/21 02/27/22 History prenat.vits,mara,vxh-mina-yeiwr 1 tab PO DAILY 06/05/21 02/27/22 History acetaminophen 325 mg tablet 650 mg PO Q6H PRN pain #60 tabs 06/18/22 Rx ferrous sulfate 325 mg (65 mg 325 mg PO DAILY #30 tabs 06/18/22 Rx iron) tablet pantoprazole 40 mg tablet,delayed 40 mg PO DAILY #14 tabs 06/18/22 Rx release (Protonix) phenazopyridine 200 mg tablet 200 mg PO Q8H PRN pain from 06/18/22 Rx (Pyridium) bladder or stent #10 tabs Past Med/Surg History Medical History Active labor at term History of chicken pox Supervision of normal first Urticaria Surgical History S/P cholecystectomy S/P wisdom tooth extraction Family History Grandmother (Maternal) Breast cancer Denies family history of Ovarian cancer Colorectal cancer Social History Smoking Status: Never smoker Hx Alcohol Use: No Hx Substance Use: No Preferred Language: Malagasy Communication Ability: Effective Yoghurt Maker Required: No Beliefs That Will Affect Care: None marital status: marital status details: Pop Luna (28) [phone] Current Living Situation: Spouse Current Living Situation Comment: lives with spouse, dogs current occupational status: employed 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 Feels Safe at Home: Yes Safety Concerns: Feels Safe At This Time Assistive Devices: None Review of Systems Review of Systems: All systems reviewed & are unremarkable except as noted in HPI & below Physical Exam Physical Exam: General: WD/WN female sitting in bed, family at bedside, NAD HEENT: head normocephalic, atraumatic, mmm, trachea midline Resp: CTA, no w/c/r, on room air CV: RRR (slightly tachycardic at times,[id number]), no m/r/g, no pitting edema/calf tenderness GI: +BS, soft/no overt tenderness : + R CVA tenderness MSK/Neuro: no focal deficit Psych: AOx3, cooperative Results & Data Results & Data Vital Signs (Past 12 Hours) Vital Signs Temp Pulse Pulse Resp BP BP Pulse Ox 06/18/22 03:51 76 06/18/22 04:02 76 18 162/95 H 98 06/18/22 03:25 36.7 C 16 135/91 97 O2 Del Method 06/18/22 03:51 06/18/22 04:02 Room Air 06/18/22 03:25 Room Air Laboratory Results 06/18/22 06/18/22 06/18/22 Range/Units 03:52 03:52 03:52 WBC (4.8-10.8) K/ul RBC (4.20-5.40) M/uL Hgb (12.0-16.0) g/dl Hct (37.0-47.0) % MCV (80.0-100.0) fL MCH (25.0-34.0) pg MCHC (32.0-36.0) g/dL RDW Std Deviation (36.4-46.3) fL RDW Coeff of Tessy (11.5-14.5) % Plt Count (130-400) K/uL MPV (9.4-12.4) fL Immature Gran % (Auto) % Neut % (Auto) % Lymph % (Auto) % Barnes % (Auto) % Eos % (Auto) % Baso % (Auto) % Neut # (Auto) (1.40-6.50) K/uL Lymph # (Auto) (1.2-3.4) K/uL Barnes # (Auto) (0.11-0.59) K/uL Eos # (Auto) (0-0.50) K/uL Baso # (Auto) (0-0.2) K/uL Immature Gran # (Auto) (0.01-0.20) K/uL Sodium (136-145) mmol/L Potassium (3.5-5.1) mmol/L Chloride (98-107) mmol/L Carbon Dioxide (21-32) mmol/L Anion Gap (3-11) BUN (6-23) mg/dl Creatinine (0.6-1.2) mg/dl Est Cr Clr Drug Dosing ml/min Est GFR ( Amer) ml/min Est GFR (Non-Af Amer) ml/min BUN/Creatinine Ratio (10-20) Glucose (70-99(Fasting)) mg/dl Calcium (8.6-10.3) mg/dl Magnesium (1.7-2.4) mg/dl Total Bilirubin (0.2-1.0) mg/dl AST (13-39) U/L ALT (7-52) U/L Alkaline Phosphatase (34-104) U/L Total Protein (6.0-8.3) gm/dl Albumin (3.4-5.0) gm/dl Globulin (2.5-4.0) gm/dl Albumin/Globulin Ratio (0.9-2) Lipase (11-82) U/L Urine Color Dark Yellow Urine Appearance Clear (Clear) Urine pH 5.5 (4.5-7.5) Ur Specific [place] 1.037 H (1.000-1.030) Urine Protein 1+ H (Negative) Urine Glucose (UA) Negative (Negative) Urine Ketones 3+ H (Negative) Urine Blood 1+ H (Negative) Urine Nitrite Negative (Negative) Urine Bilirubin Negative (Negative) Urine Urobilinogen Negative (Negative) Ur Leukocyte Esterase Trace H (Negative) Urine WBC (Auto) 10-30 H (0-5) /hpf Urine RBC (Auto) 5-10 H (0-4) /hpf U Hyaline Cast (Auto) 10-30 H (0-5) /lpf U Epithel Cells (Auto) >30 H (0-5) /lpf Urine Bacteria (Auto) Negative (Negative) POC Ur Test Pending Adenovirus (PCR) Not Detected (NotDetected) B. pertussis DNA (PCR) Not Detected (NotDetected) B.parapertussis DNA PCR Not Detected (NotDetected) C. pneumoniae DNA (PCR) Not Detected (NotDetected) Coronavirus OC43 (PCR) Not Detected (NotDetected) Coronavirus HKU1 (PCR) Not Detected (NotDetected) Coronavirus 229E (PCR) Not Detected (NotDetected) SARS-CoV-2 (PCR) Not Detected (NotDetected) Coronavirus NL63 (PCR) Not Detected (NotDetected) Human Metapneumovir PCR Not Detected (NotDetected) Influenza Type A (PCR) Not Detected (NotDetected) Influenza Type B (PCR) Not Detected (NotDetected) M. pneumoniae (PCR) Not Detected (NotDetected) Parainfluenza 1 (PCR) Not Detected (NotDetected) Parainfluenza 2 (PCR) Not Detected (NotDetected) Parainfluenza 3 (PCR) Not Detected (NotDetected) Parainfluenza 4 (PCR) Not Detected (NotDetected) RSV (PCR) Not Detected (NotDetected) Entero/Rhino (PCR) Not Detected (NotDetected) 06/18/22 06/18/22 Range/Units 03:52 03:52 WBC 7.87 (4.8-10.8) K/ul RBC 5.20 (4.20-5.40) M/uL Hgb 11.6 L (12.0-16.0) g/dl Hct 36.8 L (37.0-47.0) % MCV 70.8 L (80.0-100.0) fL MCH 22.3 L (25.0-34.0) pg MCHC 31.5 L (32.0-36.0) g/dL RDW Std Deviation 42.8 (36.4-46.3) fL RDW Coeff of Tessy 17.2 H (11.5-14.5) % Plt Count 289 (130-400) K/uL MPV 10.3 (9.4-12.4) fL Immature Gran % (Auto) 0.3 % Neut % (Auto) 86.3 % Lymph % (Auto) 10.7 % Barnes % (Auto) 2.4 % Eos % (Auto) 0.0 % Baso % (Auto) 0.3 % Neut # (Auto) 6.80 H (1.40-6.50) K/uL Lymph # (Auto) 0.84 L (1.2-3.4) K/uL Barnes # (Auto) 0.19 (0.11-0.59) K/uL Eos # (Auto) 0.00 (0-0.50) K/uL Baso # (Auto) 0.02 (0-0.2) K/uL Immature Gran # (Auto) 0.02 (0.01-0.20) K/uL Sodium 137 (136-145) mmol/L Potassium 3.5 (3.5-5.1) mmol/L Chloride 106 (98-107) mmol/L Carbon Dioxide 22 (21-32) mmol/L Anion Gap 9 (3-11) BUN 16 (6-23) mg/dl Creatinine 1.02 (0.6-1.2) mg/dl Est Cr Clr Drug Dosing 80.6 ml/min Est GFR ( Amer) 86.7 ml/min Est GFR (Non-Af Amer) 74.8 ml/min BUN/Creatinine Ratio 15.7 (10-20) Glucose 124 H (70-99(Fasting)) mg/dl Calcium 8.9 (8.6-10.3) mg/dl Magnesium 1.7 (1.7-2.4) mg/dl Total Bilirubin 0.3 (0.2-1.0) mg/dl AST 18 (13-39) U/L ALT 13 (7-52) U/L Alkaline Phosphatase 82 (34-104) U/L Total Protein 7.7 (6.0-8.3) gm/dl Albumin 4.3 (3.4-5.0) gm/dl Globulin 3.4 (2.5-4.0) gm/dl Albumin/Globulin Ratio 1.3 (0.9-2) Lipase 14 (11-82) U/L Urine Color Urine Appearance (Clear) Urine pH (4.5-7.5) Ur Specific [place] (1.000-1.030) Urine Protein (Negative) Urine Glucose (UA) (Negative) Urine Ketones (Negative) Urine Blood (Negative) Urine Nitrite (Negative) Urine Bilirubin (Negative) Urine Urobilinogen (Negative) Ur Leukocyte Esterase (Negative) Urine WBC (Auto) (0-5) /hpf Urine RBC (Auto) (0-4) /hpf U Hyaline Cast (Auto) (0-5) /lpf U Epithel Cells (Auto) (0-5) /lpf Urine Bacteria (Auto) (Negative) POC Ur Test Adenovirus (PCR) (NotDetected) B. pertussis DNA (PCR) (NotDetected) B.parapertussis DNA PCR (NotDetected) C. pneumoniae DNA (PCR) (NotDetected) Coronavirus OC43 (PCR) (NotDetected) Coronavirus HKU1 (PCR) (NotDetected) Coronavirus 229E (PCR) (NotDetected) SARS-CoV-2 (PCR) (NotDetected) Coronavirus NL63 (PCR) (NotDetected) Human Metapneumovir PCR (NotDetected) Influenza Type A (PCR) (NotDetected) Influenza Type B (PCR) (NotDetected) M. pneumoniae (PCR) (NotDetected) Parainfluenza 1 (PCR) (NotDetected) Parainfluenza 2 (PCR) (NotDetected) Parainfluenza 3 (PCR) (NotDetected) Parainfluenza 4 (PCR) (NotDetected) RSV (PCR) (NotDetected) Entero/Rhino (PCR) (NotDetected) Diagnostic Findings Abdomen/Pelvis CT 06/18/22 03:33 Exam(s): CT ABDOMEN + PELVIS With Contrast IV Amt: 87 ml optiray 350 EXAM: CT Abdomen and Pelvis With Intravenous Contrast CLINICAL HISTORY: Reason for exam: n/v/d, right side abd pain. TECHNIQUE: Axial computed tomography images of the abdomen and pelvis with intravenous contrast. CTDI is 11.31 mGy and DLP is 600.81 mGy-cm. Automated exposure control was utilized for the study. A dose lowering technique was utilized adhering to the principles of ALARA. CONTRAST: Patient received 87 ml optiray 350 of IV contrast COMPARISON: No relevant prior studies available. FINDINGS: Lung bases: Unremarkable. No mass. No consolidation. ABDOMEN: Liver: Hepatic steatosis. No mass. Gallbladder and bile ducts: Unremarkable. No calcified stones. No ductal dilation. Pancreas: Unremarkable. No mass. No ductal dilation. Spleen: Splenomegaly. Adrenals: Unremarkable. No mass. Kidneys and ureters: Extensive right hydronephrosis and hydroureter with a 8 mm x 6.5 mm urinary calculus just proximal to the right UVJ. Right nephrolithiasis. Stomach and bowel: Thickening and edema of the distal esophageal wall and gastric wall. There is thickening and edema of the colon wall with mild inflammation of the surrounding mesenteric fat. PELVIS: Appendix: No findings to suggest acute appendicitis. Bladder: Unremarkable. No mass. Reproductive: Unremarkable as visualized. ABDOMEN and PELVIS: Intraperitoneal space: Unremarkable. No free air. No significant fluid collection. Bones/joints: No acute fracture. No dislocation. Soft tissues: There is a 5 mm fat-containing umbilical hernia. Vasculature: Unremarkable. No abdominal aortic aneurysm. Lymph nodes: Numerous prominent lymph nodes scattered throughout the mesenteric fat. IMPRESSION: 1. Extensive right hydronephrosis and hydroureter with a 8 x 6.5 mm urinary calculus just proximal to the right UVJ. Recommend urology consult. 2. Findings concerning for pancolitis, which may be of infectious or inflammatory etiologies. Secondary mesenteric adenitis. 3. Findings concerning for distal esophagitis and gastritis. 4. Right nephrolithiasis. 5. Hepatic steatosis. 6. Splenomegaly. Electronically signed by: Jennifer Whitten MD 06/18/22 06:04 AM Supervising Physician Co-Signing Physician Notes UMA Supervision Note: I personally saw and examined the patient. I verified all epps points and agree with UMA Vasquez with the following exceptions and/or additions: S-Pt presents with right sided abd and flank pain that is severe after having a GI illness x 3 days. Found to have large right ureterolithiasis with hydronephrosis and pancolitis, mesenteric YANA. No fevers. Has some nausea with the pain. History and ROS reviewed otherwise as above O- Vitals reviewed Gen: [AAOx3, NAD] HEENT: [anicteric sclerae, EOMI] CV: [RRR no mgr nl S1S2] Pulm: [CTAB no wcr] Abd: [+BS soft NT ND no masses or hernias] Ext: [no edema, 2+ DP pulses] Skin: [no rashes, warm/dry] Neuro: [full strength throughout] Labs, rads reviewed A/P-26 yo female here with right sided ureterolithiasis with hydronephrosis. No UTI or GAYLE. Plan for stent in OR today, keep NPO, pain control PPI for gastritis, supportive care for GI illness, no abd needed, check stool PCR if still having diarrhea PG Care Time/CCT Total # of Minutes Spent Total Time Spent with Patient: Total time spent is greater than 50% in coordination of care (as documented) at patient's floor/unit and/or counseling patient: Coding Level of Care Code 42552 INT INP/OBS CARE 255MIN Diagnoses Nephrolithiasis N20.0 Pancolitis K51.00 Diarrhea R19.7 Microcytic anemia D50.9
[2022-06-18] MEDS ORDERED: PROCHLORPERAZINE 10 MG in SYRINGE 8 ML IV ONE (09:00)
[2022-06-18] MEDS ORDERED: MoRPHine SULFATE 4 MG/ML 1 ML CARP\\VIAL IV PRN (10:28)
[2022-06-18] MEDS ORDERED: MoRPHine SULFATE 2 MG/ML CARP IV PRN (10:28)
[2022-06-18] MEDS ORDERED: ONDANSETRON INJ 2 MG/ML 2 ML VIAL IV PRN ×2 (10:28→12:52)
[2022-06-18] MEDS ORDERED: ACETAMINOPHEN 1,000 MG/100 ML VIAL IV PRN (10:28)
--- NOTE | 2022-06-18 10:33 | Anesthesiology Consultation ---
Date of Service June 18, 2022 Assessment & Plan Chart Review Chart Review: Acceptable Risk for Surgery and Patient NOT seen in Pre Admission Testing History Surgery Operation Date: 06/18/22 15:15 Proposed Procedures p Cystoscopy, Right Ureteroscopy, Right Stent Placement, Possible Stone Treatment - Joel High DO Height/Weight Height: 5 ft 1 in Weight: 83.7 kg Allergies Allergy/AdvReac Type Severity Reaction Status Date / Time amoxicillin Allergy hives Verified 02/27/22 16:01 azithromycin Allergy hives Verified 02/27/22 16:01 chocolate flavor Allergy hives Verified 02/27/22 16:01 doxycycline Allergy hives Verified 02/27/22 16:01 Medications Home Medications Medication Instructions Recorded Confirmed Last Taken cetirizine 10 mg tablet (Zyrtec) 10 mg PO DAILY 03/01/21 02/27/22 01/07/22 prenat.vits,mara,jiy-oxlz-klkfy 1 tab PO DAILY 06/05/21 02/27/22 01/07/22 Past Medical History Medical History Active labor at term History of chicken pox Supervision of normal first Urticaria Past Family History Family History Grandmother (Maternal) Breast cancer Denies family history of Ovarian cancer Colorectal cancer Past Surgical History Surgical History S/P cholecystectomy S/P wisdom tooth extraction Social History Smoking Status: Never smoker Hx Alcohol Use: No Hx Substance Use: No Physical Exam Vital Signs Last Vital Signs Temp 36.7 C 06/18/22 03:25 Pulse 79 06/18/22 08:07 Resp 18 06/18/22 04:02 BP 162/95 H 06/18/22 04:02 Pulse Ox 98 06/18/22 04:02 O2 Del Method Room Air 06/18/22 04:02 Testing Laboratory Results 06/18/22 03:52 06/18/22 03:52 Urine Color Dark Yellow 06/18/22 03:52 Urine Appearance Clear (Clear) 06/18/22 03:52 Urine pH 5.5 (4.5-7.5) 06/18/22 03:52 Ur Specific [place] 1.037 (1.000-1.030) H 06/18/22 03:52 Urine Protein 1+ (Negative) H 06/18/22 03:52 Urine Glucose (UA) Negative (Negative) 06/18/22 03:52 Urine Ketones 3+ (Negative) H 06/18/22 03:52 Urine Nitrite Negative (Negative) 06/18/22 03:52 Ur Leukocyte Esterase Trace (Negative) H 06/18/22 03:52 Urine WBC (Auto) 10-30 /hpf (0-5) H 06/18/22 03:52 Urine RBC (Auto) 5-10 /hpf (0-4) H 06/18/22 03:52 U Hyaline Cast (Auto) 10-30 /lpf (0-5) H 06/18/22 03:52 U Epithel Cells (Auto) >30 /lpf (0-5) H 06/18/22 03:52 Urine Bacteria (Auto) Negative (Negative) 06/18/22 03:52 06/18/22 03:52 POC Ur Test Pending
[2022-06-18] MEDS ORDERED: POTASSIUM CHLORIDE 10 MEQ in SODIUM CHLORIDE 0.9% 1000ML 1,000 ML IV SCH (10:45)
[2022-06-18] MEDS ORDERED: CIPROFLOXACIN / D5W 400 MG/200 ML BAG IV SCH (11:00)
[2022-06-18] MEDS ORDERED: PANTOprazole 40 MG in SYRINGE 0 ML IV SCH (11:00)
[2022-06-18 11:23] LABS: Ferritin 10.2 ng/ml (8-388)
[2022-06-18] MEDS: KETOROLAC TROMETHAMINE 15 MG/ML VIAL IV SCH ×2 (11:27→17:58)
--- NOTE | 2022-06-18 12:35 | History & Physical Bridge Note ---
Date of Service June 18, 2022 History & Physical Bridge Note I have examined the patient, reviewed the History & Physical and in the interval since the performance of the History & Physical I have noted the following changes of clinical significance: no changes noted
[2022-06-18] MEDS ORDERED: MIDAZOLAM HCL 1 MG/ML 2ML VIAL ONE (12:38)
[2022-06-18] MEDS ORDERED: fentaNYL citrate PF 100 MCG/2 ML VIAL ONE (12:38)
[2022-06-18] MEDS ORDERED: DEXAMETHASONE SOD INJ 4 MG/ML VIAL ONE (12:40)
[2022-06-18] MEDS ORDERED: LIDOCAINE 2% MPF LOCAL 5 ML VIAL ONE (12:40)
[2022-06-18] MEDS ORDERED: ONDANSETRON INJ 2 MG/ML 2 ML VIAL ONE (12:40)
[2022-06-18] MEDS ORDERED: PROPOFOL IV EMULSION 10 MG/ML 20 ML VIAL IV ONE (12:40)
[2022-06-18] MEDS ORDERED: ATROPINE SULFATE 0.1 MG/ML 10ML SYR IV PRN (12:52)
[2022-06-18] MEDS ORDERED: HYDROmorphone INJ 2 MG/ML SYR/VIAL IV PRN (12:52)
[2022-06-18] MEDS ORDERED: fentaNYL citrate PF 100 MCG/2 ML VIAL IV PRN (12:52)
[2022-06-18] MEDS ORDERED: ePHEDrine sulfate 50 MG/ML AMP IV PRN (12:52)
[2022-06-18] MEDS ORDERED: DIATRIZOATE MEGLUMINE 30% 100ML VIAL INSTIL PRN (13:38)
--- NOTE | 2022-06-18 13:41 | Operative Report ---
PG Post Operative Report Pre & Post Diagnosis Obstructing Right Stone Same Operation Date: 06/18/22 15:15 <No data on this case meets the specified criteria> I identified the patient and participated in the time-out.: Yes Procedure Cystoscopy with right ureteroscopy, stone basket extraction. retrograde pyelogram and stent placement. Operation Date: 06/18/22 15:15 <No data on this case meets the specified criteria> Surgeon Joel High, II, DO Technical Proposal Writer None Estimated Blood Loss 1 Findings Consistent with Post-Op Diagnosis Stone removed and stent placed. Specimens Stone Right ureter Drains 6 Fr x 24 Right Anesthesia Type General Complications none Disposition Disposition: Recovery Room Indications Patient with bothersome stones. Risks and benefits discussed at length. Description of Procedure Patient was consented and brought back to the operating room. Patient was placed under anesthesia in the supine position and moved to the dorsal lithotomy position. Patient was prepped and draped in the regular sterile fashion. A time out was completed. A 30degree Cystoscope was placed into the bladder and the entire bladder was examined. The UO's were identified. The UO was cannulized with a catheter and a retrograde pyelogram was completed. A wire was then placed. The Rigid ureteroscope was taken into the ureter. The stone was identified. A small leading stone flushed out of the ureter but the larger stone was grasped and removed and sent for analysis. The entire area was once again examined. No residual large fragments or areas of concern were noted. The scope was slowly removed with the wire left in place. Contrast was placed through the scope for a pyelogram to assist in stent placement. The entire ureter was examined as the scope was slowly removed. No obstructions or other areas of concern were noted. With the wire in place, a 6 Fr Double J stent was placed. It was confirmed with fluoroscopy. With the stent in place, the bladder was emptied. The scope was removed. The patient was cleaned, aroused from anesthesia, and transferred to the pacu in stable condition having tolerated the procedure well with no complications. I was present and participated in all aspects of the procedure. The patient will be monitored in the PACU until transferred. Plan to maintain stent for 1-2 weeks and remove in office. I attest to the content of the Intraoperative Record and any orders documented therein. Any exceptions are noted below.
--- NOTE | 2022-06-18 13:55 | Fluoroscopy Report ---
FL retrograde includes kub CLINICAL HISTORY: Right ureteral stent placement. COMPARISON STUDY: None. FLUOROSCOPY TIME: 15 second FLUOROSCOPY IMAGES: 2 Ka,r: 3.8 mGy FINDINGS: A right ureteral stent was placed in a retrograde fashion utilizing fluoroscopic assistance . The stent appears in good position. Right-sided nephrosis is noted. IMPRESSION: Fluoroscopic assistance as above. ACT 112: Negative or not required by law. Electronically signed by: Ramsey Batres M.D. 06/18/2022 1:53 PM
--- NOTE | 2022-06-18 14:12 | Anesthesiology Progress Note ---
Date of Service June 18, 2022 Anesthesia Post Procedure Vital Signs Vital Signs: Temp Pulse Pulse Pulse Pulse Resp BP 06/18/22 14:05 74 14 06/18/22 13:55 92 H 16 06/18/22 13:45 36.6 C 83 13 06/18/22 12:40 36.8 C 72 20 06/18/22 10:28 36.9 C 75 16 06/18/22 08:07 79 06/18/22 03:51 76 06/18/22 04:02 76 18 06/18/22 03:25 36.7 C 16 135/91 BP Pulse Ox O2 Del Method O2 Flow Rate 06/18/22 14:05 133/87 98 Room Air 06/18/22 13:55 131/87 97 Oxymask 3 06/18/22 13:45 124/74 99 Oxymask 3 06/18/22 12:40 141/74 H 96 Room Air 06/18/22 10:28 135/85 99 Room Air 06/18/22 08:07 06/18/22 03:51 06/18/22 04:02 162/95 H 98 Room Air 06/18/22 03:25 97 Room Air Pain Intensity Right Lower Abdomen: Pain Intensity: 3 Transfer of Care Handoff Completed per policy Notes Mental Status: alert / awake / arousable and participated in evaluation Patient Amnestic to Procedure: Yes Nausea / Vomiting: adequately controlled Pain: adequately controlled Airway Patency, RR, SpO2: stable & adequate BP & HR: stable & adequate Hydration State: stable & adequate Anesthetic Complications: no major complications apparent and Pt Satisfied with anesthetic care
--- NOTE | 2022-06-18 19:49 | Discharge Summary ---
Date of Service June 18, 2022 Admission HPI Per Admitting Provider 26yo family with recent GI/viral illness/diarrhea at home had initially been improving from vial illness but then last evening developed significant RIGHT flank pain 10/10, with radiation to groin. Reports urine darkener in color and reports she has not keeping up with hydration very well at home over the past week. She did not take any Tylenol/ibuprofen at home for pain. NEVER had history of stones in the past. CT imaging revealed right hydronephrosis with an 8 x 6.5 mm kidney stone at the right UV junction, also with concerns for pancolitis however not having significant abdominal pain/nausea or vomiting at present. Given dose of morphine in ER and reports feeling better but discussed Toradol for pain control which may be more effective. Continued loose stools but denied any blood/family history of IBD. No documents fevers. Discussed keeping NPO in case of need for cystoscopy and initiation of Flomax, morphine and toradol for pain. No having any chest pain or shortness of breath at present. No leukocytosis. WBC 7.8k. Not at present, or taking any regular medications. Questions/concerns addressed at this time. Principal Diagnosis Right sided ureterolithiasis with hydronephrosis Viral gastroenteritis Discharge Exam Constitutional WD/WN, vitals as above Eyes + anicteric sclerae Respiratory normal respiratory effort, lungs clear to auscultation Cardiovascular RRR, no murmur, no edema Gastrointestinal (Abdomen) normal bowel sounds, soft, nontender, no hepatosplenomegaly Psychiatric A+Ox3, euthymic affect Discharge Data Allergies Allergy/AdvReac Type Severity Reaction Status Date / Time amoxicillin Allergy hives Verified 02/27/22 16:01 azithromycin Allergy hives Verified 02/27/22 16:01 chocolate flavor Allergy hives Verified 02/27/22 16:01 doxycycline Allergy hives Verified 02/27/22 16:01 Consultations 06/18/22 06:14 Consult Urology Stat 06/18/22 07:18 ED Decision to Admit Stat Procedures Performed Operation Date: 06/18/22 15:15 Actual Procedures p Cystoscopy, Right Ureteroscopy, Right Retrograde Pylogram, Basket Stone Extraction, Right Stent Placement - Joel High, DO Ordered Studies 06/18/22 03:33 CT abd pelvis IV con only Stat 06/18/22 12:30 FL retrograde includes kub Routine Hospital Course (1) Nephrolithiasis: Imaging w/ extensive right hydronephrosis and hydroureter with a 8 x 6.5 mm urinary calculus just proximal to the right UVJ. UA does not appear infected and no GAYLE Admitted med/surg Urology consulted, appreciate assistance-had ureteral stent placed and stone extracted Pt with no pain afterwards, no nausea, tolerating a diet, feels ready to go home with tylenol and pyridium prn for pain f/u with Urology in 1-2 weeks for stent removal (2) Pancolitis: as seen on imaging, suspect 2nd to viral GI illness over past weeks. With mesenteric YANA associated with this likely reactive Overnight Radiology read as splenomegaly but I asked the procurement professional radiologist here to look at spleen and only measuring 12.5cm so borderline but not enlarged No hx IBD GI symptoms were already resolving prior to development of kidney stone no further N/V/D while admitted, tolerating a diet Advised advancement to bland diet a alexandrea and to regular diet in a few days recommend repeat CT torres in 1-2 months to ensure YANA resolving (3) Microcytic anemia: With severe iron deficiency noted here does have menorrhagia advised to discuss with PCP and/or HEMATOLOGY TECHNOLOGIST provider start FeSO4 pills once GI symptoms completely resolved from gastroenteritis f/u with PCP (4) Fatty liver: note don CT scan advised weight loss, low carb diet Plan Dispo-stable for dc to home. She does not have a PCP and I recommended she see Dr. Dunn in f/u-she will call for appt Total Time Total Time Spent Total Time Spent (In Minutes): 45 min Discharge Plan Discharge Items Patient Disposition: Home - Self-Care Reason For Visit: R FLANK PAIN, KIDNEY STONE Discharge Diagnosis: Right ureterolithiasis, colitis Gastritis/esophagitis Fatty liver Iron deficiency anemia Condition on Discharge: Good Activity: Resume your previous activity Non-emergency contact: Primary Care Provider and Urologist Call non-emergency contact if: you have any medication questions, your symptoms worsen, your pain is not controlled, your pain is worsening and you have a fever Follow-up/Referrals: Isha Dunn DO [Physician] - (Please call to schedule a new patient Hospital follow up appointment within 1-2 weeks.) Joel High DO [Physician] - (Follow up within 1-2 weeks for stent removal.) PCP,NO [Primary Care Provider] - Diet: Regular Addtl Attending Provider Instructions: You were admitted with a large right sided kidney stone which was successfully removed. You had a stent placed in your right ureter to prop open the ureter to allow urine flow. You will need to follow up with the Urologist in 1-2 weeks for stent removal. Your gastroenteritis is resolved and you can advance your diet to a bland diet for a few days and then back to a regular diet. Because of the inflammation seen in your stomach, you should take an antacid called Protonix once daily for the next 2 weeks. Incidentally found on your CT scan of the abdomen and pelvis were a fatty liver, a borderline enlarged spleen, and some enlarged lymph nodes. This could be from your recent infection, but you should follow up with a primary care doctor to repeat your CT scan in 1-2 months to ensure it has normalized. For the fatty liver, a low carbohydrate diet and weight loss will help improve this. You were also found to have severe iron deficiency anemia. You should start taking an iron pill and follow up with your PCP. This could be from your heavy periods, but there can be other causes of iron deficiency anemia that your PCP can look into for you. Pending Studies at Discharge: Yes (Urine culture) Stand-Alone Forms: [facility], Smoking Cessation Medications and DC Order Prescriptions: New ferrous sulfate 325 mg (65 mg iron) tablet 325 mg PO DAILY Qty: 30 0RF Rx Instructions: OTC acetaminophen 325 mg tablet 650 mg PO Q6H PRN (Reason: pain) Qty: 60 0RF Rx Instructions: OTC pantoprazole [Protonix] 40 mg tablet,delayed release (DR/EC) 40 mg PO DAILY Qty: 14 0RF phenazopyridine [Pyridium] 200 mg tablet 200 mg PO Q8H PRN (Reason: pain from bladder or stent) Qty: 10 0RF Continued cetirizine [Zyrtec] 10 mg tablet 10 mg PO DAILY Discontinued prenat.vits,mara,[id number] Tablet 1 tab PO DAILY Discharge Orders: Discharge Order (Routine); Ordered 06/18/22 Ordered By: Angelica Mack Admission Data Admit Date/Time: 06/18/22 07:48 Attending Provider: Angelica Mack Admit Provider: Angelica Mack Primary Care Provider: PCP,NO Other Providers: Joel High ; Angelica Mack Coding Level of Care Code INP/OBS EV SAME DAY LV 2,70MIN Diagnoses Nephrolithiasis N20.0 Pancolitis K51.00 Microcytic anemia D50.9 Fatty liver K76.0
[2022-06-18] MEDS ORDERED: TAMSULOSIN HCL 0.4 MG CAP PO SCH (21:00)
--- NOTE | 2022-06-19 05:42 | Emergency Department Note ---
History of Present Illness General Chief complaint: Abdominal Pain Stated complaint: RIGHT SIDED LWR ABDOMINAL PAIN,VOMITING Time Seen by Provider: 06/18/22 03:30 History of Present Illness Maximum Pain Intensity: 5 This is a 26-year-old female presenting to the emergency department for e valuation of right-sided lower back pain radiating into her right side groin. The patient is with nausea and vomiting. She is usually healthy, but states that she did get a GI bug a few days ago where she had diarrhea. This seems to have improved, and she had about 24 hours where she was doing very well. She has been hydrating more than normal, but states that she had acute onset pain tonight. She rates the pain a colicky 5/10. She feels like she is able to urinate. She has not taken anything [id number] for symptoms. Home Medications Medication Instructions Recorded Confirmed Type cetirizine 10 mg tablet (Zyrtec) 10 mg PO DAILY 03/01/21 02/27/22 History acetaminophen 325 mg tablet 650 mg PO Q6H PRN pain #60 tabs 06/18/22 Rx ferrous sulfate 325 mg (65 mg 325 mg PO DAILY #30 tabs 06/18/22 Rx iron) tablet pantoprazole 40 mg tablet,delayed 40 mg PO DAILY #14 tabs 06/18/22 Rx release (Protonix) phenazopyridine 200 mg tablet 200 mg PO Q8H PRN pain from 06/18/22 Rx (Pyridium) bladder or stent #10 tabs Allergies Allergy/AdvReac Type Severity Reaction Status Date / Time amoxicillin Allergy hives Verified 02/27/22 16:01 azithromycin Allergy hives Verified 02/27/22 16:01 chocolate flavor Allergy hives Verified 02/27/22 16:01 doxycycline Allergy hives Verified 02/27/22 16:01 Past Med/Surg History Medical History Active labor at term Fatty liver History of chicken pox Supervision of normal first Urticaria Surgical History S/P cholecystectomy S/P wisdom tooth extraction Family History Grandmother (Maternal) Breast cancer Denies family history of Ovarian cancer Colorectal cancer Social History Smoking Status: Never smoker Hx Alcohol Use: No Hx Substance Use: No Preferred Language: Indian Communication Ability: Effective [employer] Required: No Beliefs That Will Affect Care: None marital status: marital status details: Pop Luna (28) [phone] Current Living Situation: Spouse Current Living Situation Comment: lives with spouse, dogs current occupational status: employed 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 Vital signs stable. GENERAL: Well-developed, well-nourished, white female, who is in no acute di stress and resting comfortably. Patient is cooperative with the examination. NECK: Supple without nuchal rigidity. No lymphadenopathy. No thyromegaly. Cervical spine is nontender. HEART: Regular rate and rhythm without murmurs gallops or rubs. LUNGS: Clear to auscultation bilaterally without wheezes, rales or rhonchi. No retractions or accessory muscle use. ABDOMEN: Positive normal bowel sounds x 4. Soft, nontender, without masses or organomegaly. No guarding or rebound tenderness. MUSCULOSKELETAL: No muscle atrophy, erythema, or edema noted. Full range of motion in all extremities. NEURO: Patient was alert and oriented to person place and time. CN II through XII grossly intact. Course Administered Medications Discontinued Medications Diatrizoate Meglumine (Diatrizoate Meglumine 30% 100ml Vial) 15 ml INSTIL UD PRN PRN Reason: surgical Stop: 06/22/22 13:37 Last Admin: 06/18/22 13:39 Dose: 15 ml Documented By: [id number] Sodium Chloride (Nss 1000ml) 1,000 mls @ 999 mls/hr IV .Q1H1M FAROOQ Stop: 06/18/22 04:45 Last Infusion: 06/18/22 05:24 Dose: 0 mls/hr Documented By: Admin: 06/18/22 04:00 Dose: 999 mls/hr Documented By: KIMANI Prochlorperazine 10 mg/ (Syringe) 10 mls @ 5 mls/min IV ONE ONE Stop: 06/18/22 09:01 Last Admin: 06/18/22 10:08 Dose: 5 mls/min Documented By: BAUDILIO Ciprofloxacin (Cipro / D5w) 400 mg in 200 mls @ 100 mls/hr IV PREOP FAROOQ; Protocol Stop: 06/19/22 10:59 Last Infusion: 06/18/22 15:07 Dose: 0 mls/hr Documented By: Admin: 06/18/22 12:54 Dose: 100 mls/hr Documented By: [id number] Potassium Chloride 10 meq/ (Sodium Chloride) 1,005 mls @ 125 mls/hr IV .Q8H3M FAROOQ Stop: 07/18/22 10:44 Last Infusion: 06/18/22 20:00 Dose: 0 mls/hr Documented By: Infusion: 06/18/22 15:55 Dose: 125 mls/hr Documented By: Infusion: 06/18/22 12:53 Dose: 0 mls/hr Documented By: Admin: 06/18/22 11:13 Dose: 125 mls/hr Documented By: JAE Pantoprazole Sodium 40 mg/ (Syringe) 10 mls @ 5 mls/min IV DAILY@1100 FAROOQ Stop: 07/18/22 10:59 Last Admin: 06/18/22 12:17 Dose: 5 mls/min Documented By: JAE Ioversol (Optiray 350 100ml) 100 ml IV ONCE ONE Stop: 06/18/22 05:37 Last Admin: 06/18/22 05:37 Dose: 87 ml Documented By: CECE Ketorolac Tromethamine (Ketorolac Tromethamine 15 Mg/Ml Vial) 15 mg IV Q6H FAROOQ Stop: 06/18/22 22:46 Last Admin: 06/18/22 17:58 Dose: 15 mg Documented By: Admin: 06/18/22 11:27 Dose: 15 mg Documented By: JAE Morphine Sulfate (Morphine Sulfate 4 Mg/Ml 1 Ml Carp\Vial) 4 mg IV Q30M PRN PRN Reason: Pain Stop: 07/02/22 03:34 Last Admin: 06/18/22 08:51 Dose: 4 mg Documented By: Admin: 06/18/22 06:35 Dose: 4 mg Documented By: Admin: 06/18/22 04:00 Dose: 4 mg Documented By: KIMANI Ondansetron HCl (Ondansetron Inj 2 Mg/Ml 2 Ml Vial) 4 mg IV NOW STA Stop: 06/18/22 03:34 Last Admin: 06/18/22 04:00 Dose: 4 mg Documented By: KIMANI Ondansetron HCl (Ondansetron Inj 2 Mg/Ml 2 Ml Vial) 4 mg IV NOW STA Stop: 06/18/22 06:28 Last Admin: 06/18/22 06:35 Dose: 4 mg Documented By: KIMANI Medical Decision Making Differential Diagnosis Differential diagnosis: Etiologies such as shingles, pyelonephritis/UTI, renal colic, appendicitis, diverticulitis, mesenteric ischemia, torsion, aortic pathology, infections, inflammatory bowel disease, bowel obstruction, PUD, biliary pathology, as well a s others were entertained. Laboratory Data 06/18/22 03:52 06/18/22 03:52 Lab Results 06/18/22 06/18/22 06/18/22 Range/Units 03:52 03:52 03:52 WBC 7.87 (4.8-10.8) K/ul RBC 5.20 (4.20-5.40) M/uL Hgb 11.6 L (12.0-16.0) g/dl Hct 36.8 L (37.0-47.0) % MCV 70.8 L (80.0-100.0) fL MCH 22.3 L (25.0-34.0) pg MCHC 31.5 L (32.0-36.0) g/dL RDW Std Deviation 42.8 (36.4-46.3) fL RDW Coeff of Tessy 17.2 H (11.5-14.5) % Plt Count 289 (130-400) K/uL MPV 10.3 (9.4-12.4) fL Immature Gran % (Auto) 0.3 % Neut % (Auto) 86.3 % Lymph % (Auto) 10.7 % [place] % (Auto) 2.4 % Eos % (Auto) 0.0 % Baso % (Auto) 0.3 % Neut # (Auto) 6.80 H (1.40-6.50) K/uL Lymph # (Auto) 0.84 L (1.2-3.4) K/uL [place] # (Auto) 0.19 (0.11-0.59) K/uL Eos # (Auto) 0.00 (0-0.50) K/uL Baso # (Auto) 0.02 (0-0.2) K/uL Immature Gran # (Auto) 0.02 (0.01-0.20) K/uL Sodium 137 (136-145) mmol/L Potassium 3.5 (3.5-5.1) mmol/L Chloride 106 (98-107) mmol/L Carbon Dioxide 22 (21-32) mmol/L Anion Gap 9 (3-11) BUN 16 (6-23) mg/dl Creatinine 1.02 (0.6-1.2) mg/dl Est Cr Clr Drug Dosing 80.6 ml/min Est GFR ( Amer) 86.7 ml/min Est GFR (Non-Af Amer) 74.8 ml/min BUN/Creatinine Ratio 15.7 (10-20) Glucose 124 H (70-99(Fasting)) mg/dl Calcium 8.9 (8.6-10.3) mg/dl Magnesium 1.7 (1.7-2.4) mg/dl Iron 17 L (35-150) mcg/dl TIBC 426 (250-450) mcg/dl Unsaturated IBC 409 H (155-355) mcg/dl Transferrin % Sat 4 L (15-50) % Ferritin 10.2 (8-388) ng/ml Total Bilirubin 0.3 (0.2-1.0) mg/dl AST 18 (13-39) U/L ALT 13 (7-52) U/L Alkaline Phosphatase 82 (34-104) U/L Total Protein 7.7 (6.0-8.3) gm/dl Albumin 4.3 (3.4-5.0) gm/dl Globulin 3.4 (2.5-4.0) gm/dl Albumin/Globulin Ratio 1.3 (0.9-2) Lipase 14 (11-82) U/L Urine Color Dark Yellow Urine Appearance Clear (Clear) Urine pH 5.5 (4.5-7.5) Ur Specific [place] 1.037 H (1.000-1.030) Urine Protein 1+ H (Negative) Urine Glucose (UA) Negative (Negative) Urine Ketones 3+ H (Negative) Urine Blood 1+ H (Negative) Urine Nitrite Negative (Negative) Urine Bilirubin Negative (Negative) Urine Urobilinogen Negative (Negative) Ur Leukocyte Esterase Trace H (Negative) Urine WBC (Auto) 10-30 H (0-5) /hpf Urine RBC (Auto) 5-10 H (0-4) /hpf U Hyaline Cast (Auto) 10-30 H (0-5) /lpf U Epithel Cells (Auto) >30 H (0-5) /lpf Urine Bacteria (Auto) Negative (Negative) POC Ur Test Adenovirus (PCR) (NotDetected) B. pertussis DNA (PCR) (NotDetected) B.parapertussis DNA PCR (NotDetected) C. pneumoniae DNA (PCR) (NotDetected) Coronavirus OC43 (PCR) (NotDetected) Coronavirus HKU1 (PCR) (NotDetected) Coronavirus 229E (PCR) (NotDetected) SARS-CoV-2 (PCR) (NotDetected) Coronavirus NL63 (PCR) (NotDetected) Human Metapneumovir PCR (NotDetected) Influenza Type A (PCR) (NotDetected) Influenza Type B (PCR) (NotDetected) M. pneumoniae (PCR) (NotDetected) Parainfluenza 1 (PCR) (NotDetected) Parainfluenza 2 (PCR) (NotDetected) Parainfluenza 3 (PCR) (NotDetected) Parainfluenza 4 (PCR) (NotDetected) RSV (PCR) (NotDetected) Entero/Rhino (PCR) (NotDetected) 06/18/22 06/18/22 Range/Units 03:52 03:52 WBC (4.8-10.8) K/ul RBC (4.20-5.40) M/uL Hgb (12.0-16.0) g/dl Hct (37.0-47.0) % MCV (80.0-100.0) fL MCH (25.0-34.0) pg MCHC (32.0-36.0) g/dL RDW Std Deviation (36.4-46.3) fL RDW Coeff of Tessy (11.5-14.5) % Plt Count (130-400) K/uL MPV (9.4-12.4) fL Immature Gran % (Auto) % Neut % (Auto) % Lymph % (Auto) % [place] % (Auto) % Eos % (Auto) % Baso % (Auto) % Neut # (Auto) (1.40-6.50) K/uL Lymph # (Auto) (1.2-3.4) K/uL [place] # (Auto) (0.11-0.59) K/uL Eos # (Auto) (0-0.50) K/uL Baso # (Auto) (0-0.2) K/uL Immature Gran # (Auto) (0.01-0.20) K/uL Sodium (136-145) mmol/L Potassium (3.5-5.1) mmol/L Chloride (98-107) mmol/L Carbon Dioxide (21-32) mmol/L Anion Gap (3-11) BUN (6-23) mg/dl Creatinine (0.6-1.2) mg/dl Est Cr Clr Drug Dosing ml/min Est GFR ( Amer) ml/min Est GFR (Non-Af Amer) ml/min BUN/Creatinine Ratio (10-20) Glucose (70-99(Fasting)) mg/dl Calcium (8.6-10.3) mg/dl Magnesium (1.7-2.4) mg/dl Iron (35-150) mcg/dl TIBC (250-450) mcg/dl Unsaturated IBC (155-355) mcg/dl Transferrin % Sat (15-50) % Ferritin (8-388) ng/ml Total Bilirubin (0.2-1.0) mg/dl AST (13-39) U/L ALT (7-52) U/L Alkaline Phosphatase (34-104) U/L Total Protein (6.0-8.3) gm/dl Albumin (3.4-5.0) gm/dl Globulin (2.5-4.0) gm/dl Albumin/Globulin Ratio (0.9-2) Lipase (11-82) U/L Urine Color Urine Appearance (Clear) Urine pH (4.5-7.5) Ur Specific [place] (1.000-1.030) Urine Protein (Negative) Urine Glucose (UA) (Negative) Urine Ketones (Negative) Urine Blood (Negative) Urine Nitrite (Negative) Urine Bilirubin (Negative) Urine Urobilinogen (Negative) Ur Leukocyte Esterase (Negative) Urine WBC (Auto) (0-5) /hpf Urine RBC (Auto) (0-4) /hpf U Hyaline Cast (Auto) (0-5) /lpf U Epithel Cells (Auto) (0-5) /lpf Urine Bacteria (Auto) (Negative) POC Ur Test Cancelled Adenovirus (PCR) Not Detected (NotDetected) B. pertussis DNA (PCR) Not Detected (NotDetected) B.parapertussis DNA PCR Not Detected (NotDetected) C. pneumoniae DNA (PCR) Not Detected (NotDetected) Coronavirus OC43 (PCR) Not Detected (NotDetected) Coronavirus HKU1 (PCR) Not Detected (NotDetected) Coronavirus 229E (PCR) Not Detected (NotDetected) SARS-CoV-2 (PCR) Not Detected (NotDetected) Coronavirus NL63 (PCR) Not Detected (NotDetected) Human Metapneumovir PCR Not Detected (NotDetected) Influenza Type A (PCR) Not Detected (NotDetected) Influenza Type B (PCR) Not Detected (NotDetected) M. pneumoniae (PCR) Not Detected (NotDetected) Parainfluenza 1 (PCR) Not Detected (NotDetected) Parainfluenza 2 (PCR) Not Detected (NotDetected) Parainfluenza 3 (PCR) Not Detected (NotDetected) Parainfluenza 4 (PCR) Not Detected (NotDetected) RSV (PCR) Not Detected (NotDetected) Entero/Rhino (PCR) Not Detected (NotDetected) Imaging Data Radiologist's Impression: Abdomen/Pelvis CT 06/18/22 03:33 Exam(s): CT ABDOMEN + PELVIS With Contrast IV Amt: 87 ml optiray 350 EXAM: CT Abdomen and Pelvis With Intravenous Contrast CLINICAL HISTORY: Reason for exam: n/v/d, right side abd pain. TECHNIQUE: Axial computed tomography images of the abdomen and pelvis with intravenous contrast. CTDI is 11.31 mGy and DLP is 600.81 mGy-cm. Automated exposure control was utilized for the study. A dose lowering technique was utilized adhering to the principles of ALARA. CONTRAST: Patient received 87 ml optiray 350 of IV contrast COMPARISON: No relevant prior studies available. FINDINGS: Lung bases: Unremarkable. No mass. No consolidation. ABDOMEN: Liver: Hepatic steatosis. No mass. Gallbladder and bile ducts: Unremarkable. No calcified stones. No ductal dilation. Pancreas: Unremarkable. No mass. No ductal dilation. Spleen: Splenomegaly. Adrenals: Unremarkable. No mass. Kidneys and ureters: Extensive right hydronephrosis and hydroureter with a 8 mm x 6.5 mm urinary calculus just proximal to the right UVJ. Right nephrolithiasis. Stomach and bowel: Thickening and edema of the distal esophageal wall and gastric wall. There is thickening and edema of the colon wall with mild inflammation of the surrounding mesenteric fat. PELVIS: Appendix: No findings to suggest acute appendicitis. Bladder: Unremarkable. No mass. Reproductive: Unremarkable as visualized. ABDOMEN and PELVIS: Intraperitoneal space: Unremarkable. No free air. No significant fluid collection. Bones/joints: No acute fracture. No dislocation. Soft tissues: There is a 5 mm fat-containing umbilical hernia. Vasculature: Unremarkable. No abdominal aortic aneurysm. Lymph nodes: Numerous prominent lymph nodes scattered throughout the mesenteric fat. IMPRESSION: 1. Extensive right hydronephrosis and hydroureter with a 8 x 6.5 mm urinary calculus just proximal to the right UVJ. Recommend urology consult. 2. Findings concerning for pancolitis, which may be of infectious or inflammatory etiologies. Secondary mesenteric adenitis. 3. Findings concerning for distal esophagitis and gastritis. 4. Right nephrolithiasis. 5. Hepatic steatosis. 6. Splenomegaly. Electronically signed by: Jennifer Whitten MD 06/18/22 06:04 AM [facility] Narrative Physical exam and history were performed. Nursing notes, EMR, and Medication List were personally reviewed. No social concerns were identified as barriers to patients care. Patient appears to have right-sided back pain bringing her to the ER. IV access was established and labs were obtained. The patient was hydrated and medicated as above. She was sent to CT scan for imaging. Patient's blood work is as above and was reviewed. She does not have a sig nificantly elevated white blood cell count, gross anemia, bandemia, or significant electrolyte imbalance. Transaminases are not diagnostic. Urine is without distinct evidence of infection. CT scan was performed and informally reviewed by myself and read by radiology. CT scan shows a very large o bstructing ureteral calculi with hydronephrosis. Case was discussed with urology who did evaluate the patient at bedside. The patient does not appear well for discharge home. The case was discussed with the on-call hospitalist. Please see the specialists dictations for further patient course, plan, and disposition. The chart was completed utilizing [employer] Speech Voice Recognition Software. G rammatical errors, random word insertions, pronoun errors, and incomplete sentences are an occasional consequence of this system due to software limitations, ambient noise, and hardware issues. Any formal questions or concerns about the content, text, or information contained within the body of this dictation should be directly addressed to the provider for clarification. . Impression & Plan Right ureteral calculus Discharge Plan Visit Data Chief Complaint: Abdominal Pain Stated Complaint: RIGHT SIDED LWR ABDOMINAL PAIN,VOMITING ED Provider: Haider Marques ED Midlevel Provider: Walter Linn Discharge Problem: Right ureteral calculus Patient Disposition: Admitted As Inpatient Condition: Good Discharge Instructions Interventions: ED Discharge Assessment Last Done: 06/18/22 10:07
== END 2022-06-18 21:21 | disposition home or self-care (01) | DRG 661 ==
LOC: ED 03:13 → INTOOBSV 07:48 → 3W 07:48

== ENCOUNTER 2024-11-25 04:59 | Inpatient (IN) ==
[2024-11-25 05:38] LABS: Hematocrit (blood only) 31.3 % (37.0-47.0); Hemoglobin 9.8 g/dl (12.0-16.0); Mean Corpuscular Hemoglobin 22.6 pg (25.0-34.0); Mean Corpuscular Volume 72.3 fL (80.0-100.0); Platelet Count 194 K/uL (130-400); RDW Standard Deviation 43.5 fL (36.4-46.3); Red Blood Count 4.33 M/uL (4.20-5.40); White Blood Count 17.54 K/ul (4.8-10.8)
--- NOTE | 2024-11-25 06:15 | History & Physical Report ---
Date of Service November 25, 2024 Assessment & Plan (1) Labor, precipitous, delivered: Plan: Baby is doing well, mom is comfortable and feeding successfully, and placenta examined in room 420 appears intact with a dark green hoodie string tied around the cord. Routine care will be provided. Close observation for any PPH, though at this time she has a stable Hgb from two months ago to today and no excessive lochia. Admission and Anticipated Discharge Date Admission Date: November 25, 2024 History of Present Illness Primary Care Provider: SIMON Cruz 29yo at 37w1d arrives from home via ambulance. She had contractions yesterday and suddenly realized around 3am that she felt a lot of pressure, after which her water broke and the baby rapidly delivered. The FOB called 911 and was instructed to use a string to tie off the umbilical cord which he did. The placenta delivered spontaneously as well. Paramedics brought her to [facility] where I met her in room 420. She reports minimal pain and cramping. There was a first degree perineal laceration which was hemostatic and did not require repair. Her fundus was firm and lochia minimal. She began successfully. Her was uncomplicated other than a arrhythmia being auscultated at certain points. Therefore pediatric team was made aware of the recommendation for a post-delivery EKG. She also had a PPH after her first delivery, which occurred in-hospital. However thus far she has shown no sign of that with this baby while under our observation, and reports only a normal amount of bleeding prior to arrival. Initial Hgb 9.8 is noted, stable from 9.9 two months ago. Allergies Allergy/AdvReac Type Severity Reaction Status Date / Time amoxicillin Allergy hives Verified 11/24/24 15:11 azithromycin Allergy hives Verified 11/24/24 15:11 chocolate flavor Allergy hives Verified 11/24/24 15:11 doxycycline Allergy hives Verified 11/24/24 15:11 Home Medications Medication Instructions Recorded Confirmed Type cetirizine 10 mg tablet (Zyrtec) 10 mg PO DAILY 03/01/21 11/24/24 History metronidazole 0.75 % topical cream 1 applic topical BID #45 grams 11/27/22 11/24/24 Rx 21-iron fu-folic acid PO 05/08/24 11/24/24 History [ Complete] Patient History Medical History Calcium nephrolithiasis Vitamin D deficiency Fatty liver Microcytic anemia Pancolitis Urticaria History of chicken pox Surgical History S/P cystoscopy with ureteral stent placement S/P cholecystectomy S/P wisdom tooth extraction Family History Grandmother (Maternal) Breast cancer Denies family history of Ovarian cancer Prostate cancer Myocardial infarction Colorectal cancer Social History Smoking Status: Never smoker Second Hand Exposure: No; Do You Dip or Chew Tobacco: No; Hx Alcohol Use: No Hx Substance Use: No Preferred Language: Occitan Communication Ability: Effective Visual Impairment: Limited Hearing Ability: Normal Print Binding Worker Required: No Beliefs That Will Affect Care: None marital status: marital status details: Pop Luna (31) [phone] Current Living Situation: Spouse and Family Current Living Situation Comment: lives with spouse, child, dogs current occupational status: employed current occupation: [employer] How many Children do You have: 1 How many Children do You have Comment: 1 daughter Feels Safe at Home: Yes Safety Concerns: Feels Safe At This Time Childhood Exposure to Second-Hand Smoke: No Diet: regular caffeine: Yes (2 cups coffee daily) during the past year weight has: remained stable Dental Care, Regularly: Yes Physical Activity Frequency: 1-2 Times per Week Seatbelt Use: always Sunscreen Use: Yes Gender Identity: Female Assistive Devices: Glasses Physical Exam Physical Exam: Sitting up feeding baby, no acute distress. Postgravid abdomen with fundus firm below U. External genitalia with shallow abrasion of perineum, lochia minimal. Results & Data Vital Signs (Past 12 Hours) Vital Signs Temp Pulse Resp BP Pulse Ox 11/25/24 06:03 108 H 130/72 11/25/24 06:02 107 H 98 11/25/24 06:01 118 H 138/69 11/25/24 05:54 104 H 98 11/25/24 05:53 110 H 121/72 11/25/24 05:49 106 H 99 11/25/24 05:44 105 H 98 11/25/24 05:43 112 H 121/71 11/25/24 05:39 107 H 99 11/25/24 05:34 97 H 98 11/25/24 05:33 112 H 135/74 11/25/24 05:29 112 H 98 11/25/24 05:24 107 H 98 11/25/24 05:19 117 H 99 11/25/24 05:14 108 H 99 11/25/24 05:12 98.2 F 116 H 16 135/83 99 11/25/24 05:09 116 H 99 Coding Level of Care Code 15982 INT INP/OBS CARE 2/55MIN Diagnoses Labor, precipitous, delivered O62.3
[2024-11-25] MEDS ORDERED: DIPHTHER/TETAN/PERTUS Vaccine (Tdap, Adol/Adult) 0.5mL IM ONE (06:17)
[2024-11-25] MEDS ORDERED: HYDROCORTISONE ACETATE 25 MG SUPP PR PRN (06:17)
[2024-11-25] MEDS: IBUPROFEN 600 MG TAB PO PRN (06:32)
[2024-11-25] MEDS: BENZOCAINE 20% SPRY 85 APPLN/85 GM CAN EXT PRN (06:33)
[2024-11-25] MEDS: ACETAMINOPHEN 325 MG TAB PO PRN (06:33)
[2024-11-25] MEDS ORDERED: SODIUM CHLORIDE 0.9% 100 ML IV PRN (07:05)
[2024-11-25] MEDS: PRENATAL VITAMIN 1 TAB PO SCH (08:19)
[2024-11-25] MEDS: DOCUSATE SODIUM 100 MG CAP PO SCH (08:19)
[2024-11-25] MEDS: CETIRIZINE HCL 10 MG TABLET PO ONE (21:14)
[2024-11-26 05:14] VITALS: TEMP 97.9
[2024-11-26 06:56] LABS: Hematocrit (blood only) 26.5 % (37.0-47.0); Hemoglobin 8.4 g/dl (12.0-16.0)
--- NOTE | 2024-11-26 07:34 | Obstetrical Progress Note ---
Date of Service <Randi Pablo MD - Last Filed: 11/26/24 07:36> November 26, 2024 Assessment & Plan <Randi Pablo MD - Last Filed: 11/26/24 07:36> (1) care following vaginal delivery: Plan -Stable routine care. Breast feeding. Rhesus positive. Rubella Non Immune. Hepatitis B Non Immune. <Mick Morales MD, FACOG - Last Filed: 11/26/24 07:52> (1) care following vaginal delivery: Subjective <Randi Pablo MD - Last Filed: 11/26/24 07:36> Ambulation: ambulating normally Voiding: no voiding problems Passing Gas:: Yes Diet Tolerance:: regular diet Lochia:: Small Feeding Type:: breast feeding Current Pain Level(1-10): 0 Pt is a 29 year old female , at 37 wks 1 dy. She is post op 1 day after an induced labor and delivery. Pt is resting comfortably in the AM Pt further denies any symptoms of SOB, Chest Pain, NVD, and/or LE Edema or Pain. Review of Systems All systems reviewed & are unremarkable except as noted in HPI & below i. Denies fever, chills, sweats ii. Denies SOB, difficulty breathing, chest pain, palpitations, chest pressure iii. Denies breast pain. iv. Denies Dysuria v. Denies headache or changes in vision. Physical Exam <Randi Pablo MD - Last Filed: 11/26/24 07:36> Constitutional WD/WN, vitals as above Eyes PERRL, conjunctivae normal, anicteric sclerae ENMT external ear and nose normal, oropharynx normal Neck trachea midline, no thyromegaly Respiratory normal respiratory effort, lungs clear to auscultation Cardiovascular RRR, no murmur, no edema Gastrointestinal (Abdomen) normal bowel sounds, soft, nontender, no hepatosplenomegaly Musculoskeletal no cyanosis or clubbing, extremities motor strength 5/5 Skin no rashes, warm and dry Psychiatric A+Ox3, euthymic affect Genitourinary As per Dr. Morales's Attestation Results & Data <Randi Pablo MD - Last Filed: 11/26/24 07:36> Vital Signs (Past 12 Hours) Vital Signs Temp Pulse Resp BP Pulse Ox O2 Del Method 11/26/24 04:30 36.6 C 96 H 16 107/68 98 Room Air 11/25/24 23:45 36.3 C L 89 17 130/85 99 Room Air 11/25/24 19:30 36.7 C 99 H 18 120/77 98 Room Air Supervising Physician <Mick Morales MD, FACOG - Last Filed: 11/26/24 07:52> Co-Signing Physician Notes Resident Physician Supervision Note: I was present with Dr. Bryan during the history and exam. I discussed the case with the resident and agree with the findings and plan as documented in the note. Any exceptions or clarifications are listed here: [None] Documented By: Mick Morales MD, FACOG
[2024-11-26 07:47] VITALS: BP 108/68; PULSE 94; RESP 18; O2SAT 97
--- NOTE | 2024-11-30 10:40 | Discharge Summary ---
Date of Service November 30, 2024 Admission HPI Per Admitting Provider 29yo at 37w1d arrives from home via ambulance. She had contractions yesterday and suddenly realized around 3am that she felt a lot of pressure, after which her water broke and the baby rapidly delivered. The FOB called 911 and was instructed to use a string to tie off the umbilical cord which he did. The placenta delivered spontaneously as well. Paramedics brought her to [facility] where I met her in room 420. She reports minimal pain and cramping. There was a first degree perineal laceration which was hemostatic and did not require repair. Her fundus was firm and lochia minimal. She began b reastfeeding successfully. Her was uncomplicated other than a arrhythmia being auscultated at certain points. Therefore pediatric team was made aware of the recommendation for a post-delivery EKG. She also had a PPH after her first delivery, which occurred in-hospital. However thus far she has shown no sign of that with this baby while under our observation, and reports only a normal amount of bleeding prior to arrival. Initial Hgb 9.8 is noted, stable from 9.9 two months ago. Supervising Physician Co-Signing Physician Notes Resident Physician Supervision Note: I was present with Dr. Bryan during the history and exam. I discussed the case with the resident and agree with the findings and plan as documented in the note. Any exceptions or clarifications are listed here: [None] Documented By: Mick Morales MD, FACOG Coding Level of Care Code None
== END 2024-11-26 12:00 | disposition home or self-care (01) | DRG 776 ==
LOC: 4S1 04:59 → 4E2 07:48